=== PATIENT | male | born 1985 | race Caucasian/White ===

== ENCOUNTER 2020-06-19 10:00 | Inpatient (IN) | payer OTHER ==
[~2020-06-19] VITALS: Ht 185.4 cm; Wt 79.5 kg
[2020-06-19] MEDS ORDERED: SODIUM CHLORIDE 0.9% 1,000 ML IV ONE ×2 (11:30→13:00)
[2020-06-19] MEDS ORDERED: KETOROLAC TROMETHAMINE 30 MG/ML VIAL IVP ONE (11:30)
[2020-06-19] MEDS ORDERED: ONDANSETRON HCL 4 MG/2 ML VIAL IVP ONE (11:45)
[2020-06-19 12:06] LABS: BASOPHILS % (AUTO) 0.4 % (0.0-2.0); EOSINOPHILS % (AUTO) 0.1 % (1.0-6.0); HEMATOCRIT 24.1 % (41-53); HEMOGLOBIN 7.7 g/dL (13.5-17.5); LYMPHOCYTES # (AUTO) 1.3 K/uL (1.0-4.8); LYMPHOCYTES % (AUTO) 21.8 % (22.0-44.0); MEAN CORPUSCULAR HEMOGLOBIN 22.7 pg (26.0-34.0); MEAN CORPUSCULAR HGB CONC 32.1 G/dL (31.0-37.0); MEAN CORPUSCULAR VOLUME 71 fL (80-100); MONOCYTES # (AUTO) 0.4 K/uL (0.1-1.0); MONOCYTES % (AUTO) 6.3 % (2.0-9.0); NEUTROPHILS # (AUTO) 4.1 K/uL (1.8-7.7); NEUTROPHILS % (AUTO) 71.4 % (40.0-70.0); PLATELET COUNT (AUTO) 466 K/uL (150-450); RED CELL DISTRIBUTION WIDTH 15.8 % (11.5-14.5)
[2020-06-19 12:10] LABS: COVID AG,FIA SOURCE NASOPHARYNGEAL
[2020-06-19 12:19] LABS: ANION GAP 11 mmol/L (8-16); CALCIUM, TOTAL 7.7 mg/dL (8.8-10.5); CARBON DIOXIDE 19 mmol/L (22-29); CHLORIDE 108 mmol/L (98-107); CREATININE 2.93 mg/dL (0.60-1.30); GLOMERULAR FILTR. RATE CALC 24 mL/min (>60); GLUCOSE,RANDOM 73 mg/dL (70-110); POTASSIUM 3.7 mmol/L (3.5-5.1); SODIUM SERUM 138 mmol/L (136-145); UREA NITROGEN, BLOOD 54 mg/dL (7-18)
[2020-06-19 12:25] LABS: ALANINE AMINOTRANSFERASE 28 U/L (12-78); ALKALINE PHOSPHATASE 99 U/L (46-116); ASPARTATE AMINOTRANSFERASE 35 U/L (15-37); BILIRUBIN,TOTAL 0.1 mg/dL (0.1-1.0); LIPASE 203 U/L (73-393); TOTAL PROTEIN, SERUM 6.6 g/dL (6.4-8.2)
[2020-06-19] MEDS ORDERED: ONDANSETRON HCL 4 MG/2 ML VIAL IVP PRN ×2 (13:00→17:00)
[2020-06-19] MEDS: SODIUM CHLORIDE 0.9% 1,000 ML IV ONE ×2 (13:00→16:07)
[2020-06-19] MEDS ORDERED: ACETAMINOPHEN 325 MG TABLET PO PRN (13:00)
[2020-06-19 14:30] VITALS: BP 138/93
[2020-06-19] MEDS ORDERED: ZOLPIDEM TARTRATE 5 MG TABLET PO ONE (15:30)
[2020-06-19] MEDS ORDERED: METOCLOPRAMIDE HCL 5 MG/ML 2 ML VIAL IVP PRN (17:00)
[2020-06-19] MEDS ORDERED: MAGNESIUM HYDROXIDE SUSPENSION 30 ML UDCUP PO PRN (17:00)
[2020-06-19] MEDS ORDERED: DICYCLOMINE HCL 10 MG CAPSULE PO PRN (17:00)
[2020-06-19] MEDS ORDERED: LORazepam 2 MG/ML VIAL IVP PRN (17:00)
[2020-06-19] MEDS ORDERED: MAGNESIUM SULFATE 2 GM, MVI, ADULT NO.1 WITH VIT K 10 ML, THIAMINE 100 MG, FOLIC ACID 1... IV ONE ×5 (17:00)
[2020-06-19] MEDS ORDERED: BISACODYL 10 MG RECTAL RECTAL SUPPOSITORY PR PRN (17:00)
[2020-06-19 18:46] VITALS: BP 125/78
[2020-06-19 19:45] VITALS: BP 129/69
[2020-06-19] MEDS ORDERED: ChlorproMAZINE HCL 50 MG/2 ML AMP IM ONE (19:45)
[2020-06-19] MEDS ORDERED: ChlorproMAZINE HCL 50 MG/2 ML AMP IM PRN (19:45)
[2020-06-19] MEDS ORDERED: LORazepam 2 MG/ML VIAL IM ONE (19:45)
[2020-06-19 20:48] VITALS: BP 129/89
[2020-06-19] MEDS: DOCUSATE SODIUM 100 MG CAPSULE PO SCH (21:08)
[2020-06-19] MEDS: TEMAZEPAM 15 MG CAPSULE PO SCH (21:08)
[2020-06-20 00:15] VITALS: BP 119/68
[2020-06-20] MEDS: HEPARIN SODIUM,PORCINE 5,000 UNITS/ML VIAL SQ SCH ×4 (00:29→23:16)
[2020-06-20 00:50] VITALS: BP 119/68
[2020-06-20 05:26] VITALS: BP 138/89
[2020-06-20 06:13] LABS: BASOPHILS % (AUTO) 0.3 % (0.0-2.0); EOSINOPHILS % (AUTO) 0.1 % (1.0-6.0); HEMATOCRIT 23.2 % (41-53); HEMOGLOBIN 7.4 g/dL (13.5-17.5); LYMPHOCYTES # (AUTO) 1.9 K/uL (1.0-4.8); LYMPHOCYTES % (AUTO) 27.3 % (22.0-44.0); MEAN CORPUSCULAR HEMOGLOBIN 22.8 pg (26.0-34.0); MEAN CORPUSCULAR HGB CONC 32.1 G/dL (31.0-37.0); MEAN CORPUSCULAR VOLUME 71 fL (80-100); MONOCYTES # (AUTO) 0.4 K/uL (0.1-1.0); MONOCYTES % (AUTO) 6.3 % (2.0-9.0); NEUTROPHILS # (AUTO) 4.7 K/uL (1.8-7.7); PLATELET COUNT (AUTO) 367 K/uL (150-450); RED BLOOD CELL COUNT(AUTO) 3.27 MIL/uL (4.50-5.90); RED CELL DISTRIBUTION WIDTH 15.3 % (11.5-14.5)
[2020-06-20 06:31] LABS: CALCIUM, TOTAL 7.6 mg/dL (8.8-10.5); CREATININE 2.58 mg/dL (0.60-1.30); POTASSIUM 3.7 mmol/L (3.5-5.1)
[2020-06-20 07:45] VITALS: BP 128/81
[2020-06-20 08:00] VITALS: BP 128/81
[2020-06-20] MEDS: DOCUSATE SODIUM 100 MG CAPSULE PO SCH ×2 (09:00→20:26)
[2020-06-20] MEDS: PANTOPRAZOLE SODIUM 40 MG DR TABLET PO SCH (09:04)
[2020-06-20 10:21] LABS: C.DIFF GDH ANTIGEN, Stool Negative (Negative); C.DIFF TOXINS A&B, Stool Negative (Negative)
[2020-06-20] MEDS ORDERED: DICYCLOMINE HCL 10 MG CAPSULE PO PRN (10:30)
[2020-06-20] MEDS ORDERED: CloNIDine HCL 0.1 MG TABLET PO PRN (10:30)
[2020-06-20] MEDS ORDERED: MAG HYDROX/AL HYDROX/SIMETH ES 30 ML SUSPENSION UDCUP PO PRN (10:30)
[2020-06-20] MEDS ORDERED: HydrOXYzine PAMOATE 50 MG CAPSULE PO PRN (10:30)
[2020-06-20] MEDS: ChlorproMAZINE HCL 50 MG TABLET PO SCH ×2 (11:59→20:26)
[2020-06-20] MEDS ORDERED: LOPERAMIDE HCL 2 MG CAPSULE PO PRN (12:45)
[2020-06-20] MEDS: LOPERAMIDE HCL 2 MG CAPSULE PO PRN (15:20)
[2020-06-20] MEDS: MetroNIDAZOLE 500 MG/NACL 100 ML IV SCH ×2 (15:22→20:25)
[2020-06-20] MEDS: ACETAMINOPHEN/CODEINE 300-15 MG TABLET PO PRN (17:35)
[2020-06-20 20:05] VITALS: BP 132/74
[2020-06-20] MEDS: TEMAZEPAM 15 MG CAPSULE PO SCH (20:25)
[2020-06-20] MEDS ORDERED: SODIUM CHLORIDE 0.9% 250 ML IV ONE (20:31)
[2020-06-20] MEDS: ZOLPIDEM TARTRATE 5 MG TABLET PO PRN (23:16)
[2020-06-21 03:55] VITALS: BP 108/78
[2020-06-21] MEDS: LOPERAMIDE HCL 2 MG CAPSULE PO PRN ×2 (03:55→20:18)
[2020-06-21] MEDS: LORazepam 2 MG/ML VIAL IM PRN ×2 (03:59→20:18)
[2020-06-21] MEDS: MetroNIDAZOLE 500 MG/NACL 100 ML IV SCH ×2 (05:28→13:22)
[2020-06-21] MEDS: ChlorproMAZINE HCL 50 MG TABLET PO SCH ×2 (08:01→20:23)
[2020-06-21] MEDS: PANTOPRAZOLE SODIUM 40 MG DR TABLET PO SCH (08:01)
[2020-06-21] MEDS: HEPARIN SODIUM,PORCINE 5,000 UNITS/ML VIAL SQ SCH ×2 (08:05→16:17)
[2020-06-21] MEDS: DOCUSATE SODIUM 100 MG CAPSULE PO SCH ×2 (08:12→20:22)
[2020-06-21 09:03] LABS: BASOPHILS % (AUTO) 0.7 % (0.0-2.0); EOSINOPHILS % (AUTO) 0.2 % (1.0-6.0); HEMATOCRIT 24.3 % (41-53); HEMOGLOBIN 7.6 g/dL (13.5-17.5); LYMPHOCYTES # (AUTO) 2.1 K/uL (1.0-4.8); LYMPHOCYTES % (AUTO) 29.6 % (22.0-44.0); MEAN CORPUSCULAR HEMOGLOBIN 22.6 pg (26.0-34.0); MEAN CORPUSCULAR HGB CONC 31.2 G/dL (31.0-37.0); MEAN CORPUSCULAR VOLUME 73 fL (80-100); MONOCYTES # (AUTO) 0.4 K/uL (0.1-1.0); MONOCYTES % (AUTO) 5.9 % (2.0-9.0); NEUTROPHILS # (AUTO) 4.4 K/uL (1.8-7.7); NEUTROPHILS % (AUTO) 63.6 % (40.0-70.0); PLATELET COUNT (AUTO) 451 K/uL (150-450); RED BLOOD CELL COUNT(AUTO) 3.34 MIL/uL (4.50-5.90)
[2020-06-21 09:12] LABS: CALCIUM, TOTAL 7.8 mg/dL (8.8-10.5); CREATININE 2.44 mg/dL (0.60-1.30); POTASSIUM 3.9 mmol/L (3.5-5.1)
[2020-06-21 09:24] LABS: AMPHET/METH SCREEN,URINE NEGATIVE (NEGATIVE); BARBITURATE SCREEN, URINE NEGATIVE (NEGATIVE); BENZODIAZEPINES SCREEN,URINE NEGATIVE (NEGATIVE); CANNABINOID SCREEN,URINE NEGATIVE (NEGATIVE); COCAINE SCREEN,URINE NEGATIVE (NEGATIVE); METHADONE SCREEN, URINE NEGATIVE (NEGATIVE); OPIATE SCREEN,URINE POSITIVE (NEGATIVE)
[2020-06-21 09:26] LABS: PHENCYCLIDINE SCREEN,URINE NEGATIVE (NEGATIVE)
[2020-06-21] MEDS ORDERED: SODIUM CHLORIDE 0.9% 1,000 ML IV ONE (13:15)
[2020-06-21] MEDS: ACETAMINOPHEN/CODEINE 300-15 MG TABLET PO PRN (16:16)
[2020-06-21] MEDS: TEMAZEPAM 15 MG CAPSULE PO SCH (20:18)
[2020-06-21] MEDS: MetroNIDAZOLE 500 MG TABLET PO SCH (20:22)
[2020-06-21 20:46] VITALS: BP 133/77
[2020-06-22] MEDS: HEPARIN SODIUM,PORCINE 5,000 UNITS/ML VIAL SQ SCH ×4 (00:17→23:39)
[2020-06-22] MEDS: ZOLPIDEM TARTRATE 5 MG TABLET PO PRN (00:17)
[2020-06-22 05:00] VITALS: BP 106/71
[2020-06-22 06:20] LABS: BASOPHILS % (AUTO) 0.4 % (0.0-2.0); EOSINOPHILS % (AUTO) 0.3 % (1.0-6.0); HEMATOCRIT 22.8 % (41-53); HEMOGLOBIN 7.3 g/dL (13.5-17.5); LYMPHOCYTES # (AUTO) 2.1 K/uL (1.0-4.8); LYMPHOCYTES % (AUTO) 28.8 % (22.0-44.0); MEAN CORPUSCULAR HGB CONC 32.1 G/dL (31.0-37.0); MEAN CORPUSCULAR VOLUME 71 fL (80-100); MONOCYTES # (AUTO) 0.4 K/uL (0.1-1.0); MONOCYTES % (AUTO) 5.7 % (2.0-9.0); NEUTROPHILS # (AUTO) 4.7 K/uL (1.8-7.7); NEUTROPHILS % (AUTO) 64.8 % (40.0-70.0); PLATELET COUNT (AUTO) 360 K/uL (150-450); RED BLOOD CELL COUNT(AUTO) 3.19 MIL/uL (4.50-5.90); RED CELL DISTRIBUTION WIDTH 16.4 % (11.5-14.5)
[2020-06-22 06:33] LABS: CALCIUM, TOTAL 7.8 mg/dL (8.8-10.5); CREATININE 2.47 mg/dL (0.60-1.30); POTASSIUM 4.3 mmol/L (3.5-5.1)
[2020-06-22 07:50] VITALS: BP 103/60
[2020-06-22] MEDS: PANTOPRAZOLE SODIUM 40 MG DR TABLET PO SCH (08:32)
[2020-06-22] MEDS: ChlorproMAZINE HCL 50 MG TABLET PO SCH ×2 (08:32→22:20)
[2020-06-22] MEDS: MetroNIDAZOLE 500 MG TABLET PO SCH ×3 (08:32→22:20)
[2020-06-22] MEDS: DOCUSATE SODIUM 100 MG CAPSULE PO SCH ×2 (08:32→22:20)
[2020-06-22] MEDS: LOPERAMIDE HCL 2 MG CAPSULE PO PRN (15:55)
[2020-06-22] MEDS: LACTOBACILLUS ACIDOPHILUS/BULGARICUS GRANULES PACKET PO SCH ×2 (15:55→22:20)
[2020-06-22] MEDS: LORazepam 2 MG/ML VIAL IM PRN (15:56)
[2020-06-22 19:51] VITALS: BP 113/64
[2020-06-22] MEDS: TEMAZEPAM 15 MG CAPSULE PO SCH (22:19)
[2020-06-23] VITALS: BP 114/66
[2020-06-23 06:06] VITALS: BP 99/49
[2020-06-23 08:10] VITALS: BP 94/61
[2020-06-23] MEDS: DOCUSATE SODIUM 100 MG CAPSULE PO SCH ×2 (09:00→19:41)
[2020-06-23] MEDS: MetroNIDAZOLE 500 MG TABLET PO SCH ×3 (09:21→19:50)
[2020-06-23] MEDS: LACTOBACILLUS ACIDOPHILUS/BULGARICUS GRANULES PACKET PO SCH ×3 (09:22→20:20)
[2020-06-23] MEDS: ChlorproMAZINE HCL 50 MG TABLET PO SCH ×2 (09:22→19:50)
[2020-06-23] MEDS: PANTOPRAZOLE SODIUM 40 MG DR TABLET PO SCH (09:22)
[2020-06-23] MEDS: HEPARIN SODIUM,PORCINE 5,000 UNITS/ML VIAL SQ SCH ×3 (09:24→23:23)
[2020-06-23] MEDS: LORazepam 2 MG/ML VIAL IM PRN ×2 (11:09→19:49)
[2020-06-23 13:26] LABS: CALCIUM, TOTAL 7.7 mg/dL (8.8-10.5); CREATININE 2.18 mg/dL (0.60-1.30); POTASSIUM 3.8 mmol/L (3.5-5.1)
[2020-06-23] MEDS: LOPERAMIDE HCL 2 MG CAPSULE PO PRN ×2 (18:14→23:21)
[2020-06-23] MEDS: TEMAZEPAM 15 MG CAPSULE PO SCH (19:49)
[2020-06-23 20:00] VITALS: BP 108/75
[2020-06-23] MEDS: ZOLPIDEM TARTRATE 5 MG TABLET PO PRN (23:21)
[2020-06-24] MEDS: LORazepam 2 MG/ML VIAL IM PRN ×2 (00:11→05:28)
[2020-06-24 00:20] VITALS: BP 128/71
[2020-06-24 04:20] VITALS: BP 95/59
[2020-06-24 07:51] VITALS: BP 123/78
[2020-06-24] MEDS: HEPARIN SODIUM,PORCINE 5,000 UNITS/ML VIAL SQ SCH ×2 (08:00→16:00)
[2020-06-24] MEDS: MetroNIDAZOLE 500 MG TABLET PO SCH ×3 (08:43→19:53)
[2020-06-24] MEDS: PANTOPRAZOLE SODIUM 40 MG DR TABLET PO SCH (08:43)
[2020-06-24] MEDS: LACTOBACILLUS ACIDOPHILUS/BULGARICUS GRANULES PACKET PO SCH ×3 (08:43→21:29)
[2020-06-24] MEDS: DOCUSATE SODIUM 100 MG CAPSULE PO SCH ×2 (08:43→21:00)
[2020-06-24] MEDS: ChlorproMAZINE HCL 50 MG TABLET PO SCH ×2 (08:44→19:53)
[2020-06-24] MEDS: LOPERAMIDE HCL 2 MG CAPSULE PO PRN ×2 (11:03→17:35)
[2020-06-24] MEDS ORDERED: METR500 PO (15:02)
[2020-06-24] MEDS ORDERED: LOPE2 PO (15:02)
[2020-06-24] MEDS ORDERED: TRAZ-252 PO (15:03)
[2020-06-24] MEDS ORDERED: CHLO50TA41 PO (15:04)
[2020-06-24 19:46] VITALS: BP 124/83
[2020-06-24] MEDS: TEMAZEPAM 15 MG CAPSULE PO SCH (19:53)
[2020-06-24] MEDS: ZOLPIDEM TARTRATE 5 MG TABLET PO PRN (21:25)
[2020-06-25 07:07] LABS: CALCIUM, TOTAL 7.7 mg/dL (8.8-10.5); CREATININE 2.25 mg/dL (0.60-1.30); POTASSIUM 3.7 mmol/L (3.5-5.1)
[2020-06-25] MEDS: ChlorproMAZINE HCL 50 MG TABLET PO SCH (08:51)
[2020-06-25] MEDS: MetroNIDAZOLE 500 MG TABLET PO SCH (08:51)
[2020-06-25] MEDS: HEPARIN SODIUM,PORCINE 5,000 UNITS/ML VIAL SQ SCH ×2 (08:51)
[2020-06-25] MEDS: PANTOPRAZOLE SODIUM 40 MG DR TABLET PO SCH (08:51)
[2020-06-25] MEDS: LACTOBACILLUS ACIDOPHILUS/BULGARICUS GRANULES PACKET PO SCH (08:52)
[2020-06-25] MEDS: DOCUSATE SODIUM 100 MG CAPSULE PO SCH (08:52)
[2020-06-25 08:55] VITALS: BP 111/62
== END 2020-06-25 10:40 | DRG 896 ==
LOC: EMS 10:06 → 6S 12:59
PROVIDERS: ADMIT Internal Medicine; ATTEND Internal Medicine
DX: F11.13 Opioid abuse with withdrawal (principal); N17.0 Acute kidney failure with tubular necrosis; F33.2 Major depressive disorder, recurrent severe without psychotic features; N17.9 Acute kidney failure, unspecified; D64.9 Anemia, unspecified; F17.210 Nicotine dependence, cigarettes, uncomplicated; N18.9 Chronic kidney disease, unspecified; D47.3 Essential (hemorrhagic) thrombocythemia; Z79.899 Other long term (current) drug therapy; Z91.5 Personal history of self-harm; Z59.0 Homelessness; Z20.822 Contact with and (suspected) exposure to COVID-19
CPT/HCPCS: 76770; 80048; 80053; 82270; 83690; 85025; 87324; 87426; 87449; 99285; G0480; J1644; J1885; J2060; J2405; J3230; J3411; J3475; J3490; J7030; J7050

== ENCOUNTER 2020-08-02 00:36 | Inpatient (IN) | payer OTHER ==
[~2020-08-02] VITALS: Ht 165.1 cm; Wt 53.4 kg
[~2020-08-02 00:36] MED LIST: CHLO50TA41 PO; LOPE2 PO; METR500 PO; TRAZ-252 PO
[2020-08-02] MEDS ORDERED: 0.9% SODIUM CHLORIDE 10 ML SYRINGE IVP PRN (01:45)
[2020-08-02] MEDS ORDERED: SODIUM CHLORIDE 0.9% 1,000 ML IV ONE ×3 (01:45→09:15)
[2020-08-02] MEDS ORDERED: CefTRIAXone 1 GM/DEXTROSE 50 ML IV ONE (01:45)
[2020-08-02] MEDS ORDERED: ACETAMINOPHEN 325 MG TABLET PO PRN (01:45)
[2020-08-02] MEDS ORDERED: ONDANSETRON HCL 4 MG/2 ML VIAL IVP PRN ×2 (01:45→09:15)
[2020-08-02 02:05] LABS: COVID AG,FIA SOURCE NASOPHARYNGEAL
[2020-08-02 02:08] LABS: BASOPHILS % (AUTO) 0.7 % (0.0-2.0); EOSINOPHILS % (AUTO) 0 % (1.0-6.0); HEMATOCRIT 29.5 % (41-53); HEMOGLOBIN 9.2 g/dL (13.5-17.5); LYMPHOCYTES # (AUTO) 1.4 K/uL (1.0-4.8); LYMPHOCYTES % (AUTO) 18.5 % (22.0-44.0); MEAN CORPUSCULAR HEMOGLOBIN 22.2 pg (26.0-34.0); MEAN CORPUSCULAR HGB CONC 31.2 G/dL (31.0-37.0); MEAN CORPUSCULAR VOLUME 71 fL (80-100); MONOCYTES # (AUTO) 0.5 K/uL (0.1-1.0); MONOCYTES % (AUTO) 7.3 % (2.0-9.0); NEUTROPHILS # (AUTO) 5.4 K/uL (1.8-7.7); NEUTROPHILS % (AUTO) 73.5 % (40.0-70.0); PLATELET COUNT (AUTO) 492 K/uL (150-450); RED BLOOD CELL COUNT(AUTO) 4.14 MIL/uL (4.50-5.90); RED CELL DISTRIBUTION WIDTH 19.7 % (11.5-14.5)
[2020-08-02 02:14] LABS: INR 1.1 (0.9-1.1); PROTHROMBIN TIME 11.5 SEC (9.4-11.6)
[2020-08-02 02:17] LABS: CALCIUM, TOTAL 8.5 mg/dL (8.8-10.5); CREATININE 3.13 mg/dL (0.60-1.30); POTASSIUM 3.3 mmol/L (3.5-5.1)
[2020-08-02 02:22] LABS: ALBUMIN 1.2 g/dL (3.4-5.0); BILIRUBIN,TOTAL 0.1 mg/dL (0.1-1.0); MAGNESIUM 1.7 mg/dL (1.80-2.40); TOTAL PROTEIN, SERUM 8.2 g/dL (6.4-8.2)
[2020-08-02 02:25] LABS: INFLUENZA TYPE A NEGATIVE FOR TYPE A (NEGATIVE); INFLUENZA TYPE B NEGATIVE FOR TYPE B (NEGATIVE)
[2020-08-02] MEDS ORDERED: SULFAMETHOX/TRIMETH 10 ML in DEXTROSE 5%-WATER 250 ML IV SCH (04:00)
[2020-08-02 08:07] VITALS: BP 100/64
[2020-08-02] MEDS ORDERED: MAGNESIUM HYDROXIDE SUSPENSION 30 ML UDCUP PO PRN (09:15)
[2020-08-02] MEDS ORDERED: BISACODYL 10 MG RECTAL RECTAL SUPPOSITORY PR PRN (09:15)
[2020-08-02] MEDS: HEPARIN SODIUM,PORCINE 5,000 UNITS/ML VIAL SQ SCH (16:00)
[2020-08-02] MEDS ORDERED: 0.9% SODIUM CHLORIDE 5 ML NEB SOLUTION NEB ONE ×2 (20:16→20:17)
[2020-08-02] MEDS ORDERED: SODIUM CHLORIDE 3% 15 ML NEB SOLUTION NEB ONE (20:21)
[2020-08-02 20:23] VITALS: BP 108/65
[2020-08-02] MEDS: DOXYCYCLINE HYCLATE 100 MG TABLET PO SCH (21:00)
[2020-08-02] MEDS: DOCUSATE SODIUM 100 MG CAPSULE PO SCH (21:00)
[2020-08-03 00:34] LABS: APPEARANCE,URINE CLEAR (CLEAR); BILIRUBIN,URINE NEGATIVE (NEGATIVE); GLUCOSE, URINE (UA) NEGATIVE (NEGATIVE); KETONES,URINE NEGATIVE (NEGATIVE); LEUKOCYTE ESTERASE ,URINE NEGATIVE (NEGATIVE); NITRATE,URINE NEGATIVE (NEGATIVE); OCCULT BLOOD,URINE TRACE (NEGATIVE); PROTEIN,URINE SEE CONFIRM (NEGATIVE); UROBILINOGEN,URINE 0.2 mg/dL (<=1.0)
[2020-08-03 00:36] LABS: BACTERIA,URINE None Seen /HPF (None Seen); RBC,URINE 0-2 /HPF (0-2); SQUAMOUS EPITHELIAL CELL,UR Rare /LPF (None Seen); SULFOSALICYLIC ACID,URINE 2+ (Negative); WBC,URINE 0-2 /HPF (0-5)
[2020-08-03 03:44] VITALS: BP 108/82
[2020-08-03] MEDS: ACETAMINOPHEN 325 MG TABLET PO PRN (04:03)
[2020-08-03] MEDS ORDERED: 0.9% SODIUM CHLORIDE 5 ML NEB SOLUTION NEB ONE (05:34)
[2020-08-03 06:25] LABS: BASOPHILS % (AUTO) 0.4 % (0.0-2.0); EOSINOPHILS % (AUTO) 0.2 % (1.0-6.0); HEMATOCRIT 22.4 % (41-53); LYMPHOCYTES # (AUTO) 1.4 K/uL (1.0-4.8); LYMPHOCYTES % (AUTO) 25.8 % (22.0-44.0); MEAN CORPUSCULAR HEMOGLOBIN 22.3 pg (26.0-34.0); MEAN CORPUSCULAR HGB CONC 31.3 G/dL (31.0-37.0); MEAN CORPUSCULAR VOLUME 71 fL (80-100); MONOCYTES # (AUTO) 0.4 K/uL (0.1-1.0); MONOCYTES % (AUTO) 7.7 % (2.0-9.0); NEUTROPHILS # (AUTO) 3.5 K/uL (1.8-7.7); NEUTROPHILS % (AUTO) 65.9 % (40.0-70.0); PLATELET COUNT (AUTO) 397 K/uL (150-450); RED BLOOD CELL COUNT(AUTO) 3.15 MIL/uL (4.50-5.90); RED CELL DISTRIBUTION WIDTH 19.4 % (11.5-14.5)
[2020-08-03 07:04] LABS: CREATININE 2.72 mg/dL (0.60-1.30); POTASSIUM 3.2 mmol/L (3.5-5.1)
[2020-08-03] MEDS: HEPARIN SODIUM,PORCINE 5,000 UNITS/ML VIAL SQ SCH ×6 (08:00→22:32)
[2020-08-03 08:03] VITALS: BP 101/69
[2020-08-03] MEDS: PANTOPRAZOLE SODIUM 40 MG DR TABLET PO SCH ×2 (08:57→09:00)
[2020-08-03] MEDS: DOXYCYCLINE HYCLATE 100 MG TABLET PO SCH ×3 (08:57→21:00)
[2020-08-03] MEDS: DOCUSATE SODIUM 100 MG CAPSULE PO SCH ×3 (08:58→21:00)
[2020-08-03 11:55] LABS: PHOSPHORUS 4.7 mg/dL (2.5-4.9)
[2020-08-03] MEDS ORDERED: SODIUM CHLORIDE 0.9% 1,000 ML IV ONE (14:00)
[2020-08-03] MEDS: PIPERACILLIN SODIUM/TAZOBACTAM 2.25 GM in DEXTROSE 5%-WATER 50 ML IV SCH ×2 (15:36→22:14)
[2020-08-03 19:55] VITALS: BP 122/66
[2020-08-04] MEDS ORDERED: SODIUM CHLORIDE 0.9% 250 ML IV ONE (03:17)
[2020-08-04] MEDS: PIPERACILLIN SODIUM/TAZOBACTAM 2.25 GM in DEXTROSE 5%-WATER 50 ML IV SCH ×4 (03:24→21:11)
[2020-08-04 05:44] VITALS: BP 112/70
[2020-08-04] MEDS: HEPARIN SODIUM,PORCINE 5,000 UNITS/ML VIAL SQ SCH ×4 (08:00→23:40)
[2020-08-04 08:15] VITALS: BP 106/71
[2020-08-04] MEDS: DOCUSATE SODIUM 100 MG CAPSULE PO SCH ×4 (09:00→21:11)
[2020-08-04] MEDS: PANTOPRAZOLE SODIUM 40 MG DR TABLET PO SCH ×2 (09:00→09:51)
[2020-08-04] MEDS: THIAMINE 100 MG TABLET PO SCH ×2 (09:00→09:47)
[2020-08-04] MEDS: DOXYCYCLINE HYCLATE 100 MG TABLET PO SCH ×4 (09:00→21:11)
[2020-08-04 09:26] LABS: HEMATOCRIT 22.1 % (41-53); LYMPHOCYTES # (AUTO) 1.7 K/uL (1.0-4.8); MONOCYTES # (AUTO) 0.6 K/uL (0.1-1.0)
[2020-08-04 09:31] LABS: BASOPHILS % (AUTO) 0.7 % (0.0-2.0); EOSINOPHILS % (AUTO) 0.2 % (1.0-6.0); LYMPHOCYTES % (AUTO) 21.7 % (22.0-44.0); MEAN CORPUSCULAR HEMOGLOBIN 22.5 pg (26.0-34.0); MEAN CORPUSCULAR HGB CONC 31.7 G/dL (31.0-37.0); MEAN CORPUSCULAR VOLUME 71 fL (80-100); NEUTROPHILS # (AUTO) 5.4 K/uL (1.8-7.7); NEUTROPHILS % (AUTO) 69.4 % (40.0-70.0); PLATELET COUNT (AUTO) 402 K/uL (150-450); RED BLOOD CELL COUNT(AUTO) 3.11 MIL/uL (4.50-5.90); RED CELL DISTRIBUTION WIDTH 19.2 % (11.5-14.5)
[2020-08-04 09:38] LABS: CALCIUM, TOTAL 7.7 mg/dL (8.8-10.5); CREATININE 2.84 mg/dL (0.60-1.30); POTASSIUM 3.3 mmol/L (3.5-5.1)
[2020-08-04] MEDS ORDERED: ETHAMBUTOL HCL 400 MG TABLET PO SCH (15:45)
[2020-08-04] MEDS ORDERED: PYRAZINAMIDE 500 MG TABLET PO SCH (15:45)
[2020-08-04] MEDS: PYRIDOXINE HCL 50 MG TABLET PO SCH (15:45)
[2020-08-04] MEDS: ISONIAZID 300 MG TABLET PO SCH (15:45)
[2020-08-04] MEDS: RIFAMPIN 300 MG CAPSULE PO SCH (15:45)
[2020-08-04 20:30] VITALS: BP 99/67
[2020-08-04] MEDS: ACETAMINOPHEN 325 MG TABLET PO PRN (21:11)
[2020-08-04 23:25] VITALS: BP 103/66
[2020-08-04] MEDS ORDERED: SODIUM CHLORIDE 0.9% 500 ML IV ONE (23:33)
[2020-08-05 03:10] VITALS: BP 119/81
[2020-08-05] MEDS: PIPERACILLIN SODIUM/TAZOBACTAM 2.25 GM in DEXTROSE 5%-WATER 50 ML IV SCH ×2 (04:00→08:59)
[2020-08-05 05:07] LABS: CMV IGM ANTIBODY <30.0 AU/mL (0.0-29.9)
[2020-08-05 08:00] VITALS: BP 118/85
[2020-08-05 08:06] LABS: LEGIONELLA PNEUMO AG URINE Negative (Negative); ORGANISM ID Not indicated.; S PNEUMO SOURCE Urine; STREP PNEUMONIAE AG URINE Negative (Negative); STREP.PNEUMO BODY FLUID CULT. Not indicated.
[2020-08-05] MEDS: DOXYCYCLINE HYCLATE 100 MG TABLET PO SCH (08:59)
[2020-08-05] MEDS: ISONIAZID 300 MG TABLET PO SCH (08:59)
[2020-08-05] MEDS: PANTOPRAZOLE SODIUM 40 MG DR TABLET PO SCH (08:59)
[2020-08-05] MEDS: RIFAMPIN 300 MG CAPSULE PO SCH (08:59)
[2020-08-05] MEDS: THIAMINE 100 MG TABLET PO SCH (08:59)
[2020-08-05] MEDS: HEPARIN SODIUM,PORCINE 5,000 UNITS/ML VIAL SQ SCH ×3 (08:59→23:45)
[2020-08-05] MEDS: PYRIDOXINE HCL 50 MG TABLET PO SCH (08:59)
[2020-08-05] MEDS: DOCUSATE SODIUM 100 MG CAPSULE PO SCH ×2 (09:00→20:34)
[2020-08-05 12:03] LABS: BASOPHILS % (AUTO) 0.9 % (0.0-2.0); EOSINOPHILS % (AUTO) 0 % (1.0-6.0); HEMATOCRIT 24.4 % (41-53); HEMOGLOBIN 7.6 g/dL (13.5-17.5); LYMPHOCYTES # (AUTO) 1.5 K/uL (1.0-4.8); LYMPHOCYTES % (AUTO) 20.4 % (22.0-44.0); MEAN CORPUSCULAR HEMOGLOBIN 21.8 pg (26.0-34.0); MEAN CORPUSCULAR HGB CONC 31.1 G/dL (31.0-37.0); MEAN CORPUSCULAR VOLUME 70 fL (80-100); MONOCYTES # (AUTO) 0.4 K/uL (0.1-1.0); MONOCYTES % (AUTO) 5.5 % (2.0-9.0); NEUTROPHILS # (AUTO) 5.2 K/uL (1.8-7.7); NEUTROPHILS % (AUTO) 73.2 % (40.0-70.0); PLATELET COUNT (AUTO) 350 K/uL (150-450); RED BLOOD CELL COUNT(AUTO) 3.48 MIL/uL (4.50-5.90); RED CELL DISTRIBUTION WIDTH 19.2 % (11.5-14.5)
[2020-08-05 12:11] LABS: CALCIUM, TOTAL 7.8 mg/dL (8.8-10.5); CREATININE 2.9 mg/dL (0.60-1.30); POTASSIUM 3.7 mmol/L (3.5-5.1)
[2020-08-05] MEDS: SODIUM CHLORIDE 0.9% 1,000 ML IV SCH (13:20)
[2020-08-05] MEDS: PYRAZINAMIDE 500 MG TABLET PO SCH (14:53)
[2020-08-05] MEDS: ETHAMBUTOL HCL 400 MG TABLET PO SCH (14:53)
[2020-08-05 15:06] LABS: U HISTOPLASMA GALACTOMANNAN AG <0.5 (<0.5 ng/mL)
[2020-08-05 15:56] LABS: APPEARANCE,URINE CLEAR (CLEAR); BILIRUBIN,URINE NEGATIVE (NEGATIVE); GLUCOSE, URINE (UA) NEGATIVE (NEGATIVE); KETONES,URINE NEGATIVE (NEGATIVE); LEUKOCYTE ESTERASE ,URINE NEGATIVE (NEGATIVE); NITRATE,URINE NEGATIVE (NEGATIVE); OCCULT BLOOD,URINE NEGATIVE (NEGATIVE); PROTEIN,URINE SEE CONFIRM (NEGATIVE); UROBILINOGEN,URINE 0.2 mg/dL (<=1.0)
[2020-08-05 16:00] LABS: CREATININE,URINE RANDOM 23.2 mg/dL (30.0-125.0); PROTEIN,URINE RANDOM 190 mg/dL (0-11.9); SODIUM,URINE RANDOM 31 mmol/l (20-110); UREA NITROGEN,URINE RANDOM 163 mg/dL (350-1000)
[2020-08-05 16:08] LABS: SULFOSALICYLIC ACID,URINE 3+ (Negative)
[2020-08-05 16:09] LABS: RBC,URINE 0-2 /HPF (0-2); WBC,URINE 0-2 /HPF (0-5)
[2020-08-05 16:10] LABS: BACTERIA,URINE Rare /HPF (None Seen); SQUAMOUS EPITHELIAL CELL,UR Rare /LPF (None Seen)
[2020-08-05] MEDS: EPOETIN ALFA 10,000 UNITS/ML VIAL SQ SCH (18:20)
[2020-08-05 19:50] VITALS: BP 98/57
[2020-08-05] MEDS: SODIUM BICARBONATE 650 MG TABLET PO SCH (20:34)
[2020-08-05] MEDS: ZOLPIDEM TARTRATE 5 MG TABLET PO PRN (23:44)
[2020-08-06] MEDS: SODIUM CHLORIDE 0.9% 1,000 ML IV SCH ×2 (01:58→14:34)
[2020-08-06 03:55] VITALS: BP 106/74
[2020-08-06 06:14] LABS: % IRON SATURATION 11.1 % (30-44)
[2020-08-06 06:30] LABS: CALCIUM, TOTAL 8.1 mg/dL (8.8-10.5); CREATININE 2.98 mg/dL (0.60-1.30); FREE T4 (FREE THYROXINE) 1.09 ng/dL (0.76-1.46); PHOSPHORUS 4.1 mg/dL (2.5-4.9); POTASSIUM 3.4 mmol/L (3.5-5.1); THYROID STIMULATING HORMONE 4.41 uIU/mL (0.36-3.74)
[2020-08-06 08:00] VITALS: BP 118/77
[2020-08-06] MEDS: HEPARIN SODIUM,PORCINE 5,000 UNITS/ML VIAL SQ SCH ×3 (08:38→23:20)
[2020-08-06] MEDS: PANTOPRAZOLE SODIUM 40 MG DR TABLET PO SCH (08:38)
[2020-08-06] MEDS: SODIUM BICARBONATE 650 MG TABLET PO SCH ×2 (08:38→23:15)
[2020-08-06] MEDS: PYRIDOXINE HCL 50 MG TABLET PO SCH (08:39)
[2020-08-06] MEDS: THIAMINE 100 MG TABLET PO SCH (08:39)
[2020-08-06] MEDS: RIFAMPIN 300 MG CAPSULE PO SCH (08:39)
[2020-08-06] MEDS: ISONIAZID 300 MG TABLET PO SCH (08:39)
[2020-08-06] MEDS: DOCUSATE SODIUM 100 MG CAPSULE PO SCH ×2 (08:44→21:00)
[2020-08-06] MEDS: ACETAMINOPHEN 325 MG TABLET PO PRN ×2 (08:52→12:55)
[2020-08-06] MEDS: CHOLECALCIFEROL (VIT D3) 5,000 [125 MCG] UNITS CAPSULE PO SCH (09:00)
[2020-08-06] MEDS: POTASSIUM CHL 10 MEQ/WATER 50 ML IV SCH ×3 (09:05→11:41)
[2020-08-06 10:35] LABS: RPR QUANT. (TITER) 1:32 (NonRea<1:1)
[2020-08-06 11:07] LABS: HIV INTERPRETATION HIV-1 Positive; HIV-1 ANTIBODY(MULTISPOT) Positive (Negative); HIV-2 ANTIBODY(MULTISPOT) Indeterminate (Negative)
[2020-08-06 14:07] LABS: ALPHA-1 (IFE & PEP) 0.3 g/dL (0.0-0.4); BETA (IFE & ELP) 0.8 g/dL (0.7-1.3); GAMMA GLOBULINS (IFE & ELP) 2.6 g/dL (0.4-1.8); IGM (IMMUNOFIXATION) 380 mg/dL (20-172)
[2020-08-06 16:06] LABS: ALBUMIN URINE (ELP) 40.3 %; ALPHA-1 URINE 9.4 %; ALPHA-2 URINE 6.5 %
[2020-08-06 20:05] VITALS: BP 113/80
[2020-08-07 04:29] VITALS: BP 115/88
[2020-08-07] MEDS: SODIUM CHLORIDE 0.9% 1,000 ML IV SCH ×2 (06:09→18:05)
[2020-08-07 06:50] LABS: BASOPHILS % (AUTO) 0.9 % (0.0-2.0); EOSINOPHILS % (AUTO) 0.4 % (1.0-6.0); HEMATOCRIT 23.9 % (41-53); HEMOGLOBIN 7.4 g/dL (13.5-17.5); LYMPHOCYTES # (AUTO) 1.2 K/uL (1.0-4.8); LYMPHOCYTES % (AUTO) 19.3 % (22.0-44.0); MEAN CORPUSCULAR HEMOGLOBIN 21.8 pg (26.0-34.0); MEAN CORPUSCULAR HGB CONC 30.9 G/dL (31.0-37.0); MEAN CORPUSCULAR VOLUME 71 fL (80-100); MONOCYTES # (AUTO) 0.3 K/uL (0.1-1.0); MONOCYTES % (AUTO) 5.3 % (2.0-9.0); NEUTROPHILS # (AUTO) 4.6 K/uL (1.8-7.7); NEUTROPHILS % (AUTO) 74.1 % (40.0-70.0); PLATELET COUNT (AUTO) 404 K/uL (150-450); RED BLOOD CELL COUNT(AUTO) 3.38 MIL/uL (4.50-5.90); RED CELL DISTRIBUTION WIDTH 19.4 % (11.5-14.5)
[2020-08-07 07:22] LABS: ALBUMIN 0.7 g/dL (3.4-5.0); BILIRUBIN,TOTAL 0.1 mg/dL (0.1-1.0); CALCIUM, TOTAL 7.8 mg/dL (8.8-10.5); CREATININE 2.5 mg/dL (0.60-1.30); POTASSIUM 3.6 mmol/L (3.5-5.1); TOTAL PROTEIN, SERUM 6.5 g/dL (6.4-8.2)
[2020-08-07 08:50] VITALS: BP 123/94
[2020-08-07] MEDS: DOCUSATE SODIUM 100 MG CAPSULE PO SCH ×2 (09:00→21:00)
[2020-08-07] MEDS: ETHAMBUTOL HCL 400 MG TABLET PO SCH (09:18)
[2020-08-07] MEDS: THIAMINE 100 MG TABLET PO SCH (09:18)
[2020-08-07] MEDS: RIFAMPIN 300 MG CAPSULE PO SCH (09:18)
[2020-08-07] MEDS: CHOLECALCIFEROL (VIT D3) 5,000 [125 MCG] UNITS CAPSULE PO SCH (09:18)
[2020-08-07] MEDS: PYRAZINAMIDE 500 MG TABLET PO SCH (09:18)
[2020-08-07] MEDS: SODIUM BICARBONATE 650 MG TABLET PO SCH ×2 (09:18→22:07)
[2020-08-07] MEDS: ISONIAZID 300 MG TABLET PO SCH (09:19)
[2020-08-07] MEDS: PYRIDOXINE HCL 50 MG TABLET PO SCH (09:19)
[2020-08-07] MEDS: PANTOPRAZOLE SODIUM 40 MG DR TABLET PO SCH (09:19)
[2020-08-07] MEDS: HEPARIN SODIUM,PORCINE 5,000 UNITS/ML VIAL SQ SCH ×2 (09:19→16:41)
[2020-08-07] MEDS ORDERED: CALCITRIOL 1 MCG/ML AMP IVP SCH (15:00)
[2020-08-07] MEDS ORDERED: SOD FERRIC GLUC COMPLX/SUCROSE 125 MG in SODIUM CHLORIDE 0.9% 100 ML IV SCH (15:00)
[2020-08-07] MEDS: POTASSIUM CITRATE 5 MEQ ER TABLET PO SCH ×2 (16:41→22:07)
[2020-08-07 20:21] VITALS: BP 123/85
[2020-08-08 04:23] VITALS: BP 120/86
[2020-08-08 06:16] LABS: BASOPHILS % (AUTO) 1.1 % (0.0-2.0); EOSINOPHILS % (AUTO) 0.7 % (1.0-6.0); HEMATOCRIT 24.3 % (41-53); HEMOGLOBIN 7.6 g/dL (13.5-17.5); LYMPHOCYTES # (AUTO) 1.6 K/uL (1.0-4.8); LYMPHOCYTES % (AUTO) 21.9 % (22.0-44.0); MEAN CORPUSCULAR HEMOGLOBIN 22.3 pg (26.0-34.0); MEAN CORPUSCULAR HGB CONC 31.3 G/dL (31.0-37.0); MEAN CORPUSCULAR VOLUME 71 fL (80-100); MONOCYTES # (AUTO) 0.8 K/uL (0.1-1.0); MONOCYTES % (AUTO) 10.6 % (2.0-9.0); NEUTROPHILS # (AUTO) 4.8 K/uL (1.8-7.7); NEUTROPHILS % (AUTO) 65.7 % (40.0-70.0); PLATELET COUNT (AUTO) 396 K/uL (150-450); RED BLOOD CELL COUNT(AUTO) 3.42 MIL/uL (4.50-5.90); RED CELL DISTRIBUTION WIDTH 19.5 % (11.5-14.5)
[2020-08-08 06:35] LABS: CALCIUM, TOTAL 8.3 mg/dL (8.8-10.5); CREATININE 2.65 mg/dL (0.60-1.30); PHOSPHORUS 2.7 mg/dL (2.5-4.9); POTASSIUM 3.8 mmol/L (3.5-5.1)
[2020-08-08 07:55] VITALS: BP 116/77
[2020-08-08] MEDS ORDERED: FERROUS SULFATE 325 MG EC TABLET PO SCH (08:00)
[2020-08-08] MEDS: HEPARIN SODIUM,PORCINE 5,000 UNITS/ML VIAL SQ SCH ×4 (08:02→23:31)
[2020-08-08] MEDS: ISONIAZID 300 MG TABLET PO SCH (08:03)
[2020-08-08] MEDS: RIFAMPIN 300 MG CAPSULE PO SCH (08:03)
[2020-08-08] MEDS: CHOLECALCIFEROL (VIT D3) 5,000 [125 MCG] UNITS CAPSULE PO SCH (08:03)
[2020-08-08] MEDS: THIAMINE 100 MG TABLET PO SCH (08:03)
[2020-08-08] MEDS: CALCITRIOL 0.25 MCG CAPSULE PO SCH (08:03)
[2020-08-08] MEDS: POTASSIUM CITRATE 5 MEQ ER TABLET PO SCH ×3 (08:03→19:43)
[2020-08-08] MEDS: SODIUM BICARBONATE 650 MG TABLET PO SCH ×2 (08:03→19:43)
[2020-08-08] MEDS: DOCUSATE SODIUM 100 MG CAPSULE PO SCH ×3 (08:03→21:00)
[2020-08-08] MEDS: PYRIDOXINE HCL 50 MG TABLET PO SCH (08:03)
[2020-08-08] MEDS: PANTOPRAZOLE SODIUM 40 MG DR TABLET PO SCH (08:04)
[2020-08-08] MEDS ORDERED: SODIUM CHLORIDE 0.9% 250 ML IV ONE (11:28)
[2020-08-08] MEDS: SOD FERRIC GLUC COMPLX/SUCROSE 125 MG in SODIUM CHLORIDE 0.9% 100 ML IV SCH (11:30)
[2020-08-08] MEDS: SODIUM BICARBONATE 75 MEQ in SODIUM CHLORIDE 0.45% 1,000 ML IV SCH (11:30)
[2020-08-08 15:20] VITALS: BP 102/64
[2020-08-08 20:13] VITALS: BP 118/88
[2020-08-09] MEDS: SODIUM BICARBONATE 75 MEQ in SODIUM CHLORIDE 0.45% 1,000 ML IV SCH ×2 (00:35→09:26)
[2020-08-09 04:31] VITALS: BP 123/86
[2020-08-09 07:05] LABS: BASOPHILS % (AUTO) 1.1 % (0.0-2.0); EOSINOPHILS % (AUTO) 0.7 % (1.0-6.0); HEMATOCRIT 23.8 % (41-53); HEMOGLOBIN 7.4 g/dL (13.5-17.5); LYMPHOCYTES # (AUTO) 1.3 K/uL (1.0-4.8); LYMPHOCYTES % (AUTO) 18.6 % (22.0-44.0); MEAN CORPUSCULAR HEMOGLOBIN 22.1 pg (26.0-34.0); MEAN CORPUSCULAR HGB CONC 31.1 G/dL (31.0-37.0); MEAN CORPUSCULAR VOLUME 71 fL (80-100); MONOCYTES # (AUTO) 0.8 K/uL (0.1-1.0); NEUTROPHILS # (AUTO) 4.7 K/uL (1.8-7.7); NEUTROPHILS % (AUTO) 67.6 % (40.0-70.0); PLATELET COUNT (AUTO) 385 K/uL (150-450); RED BLOOD CELL COUNT(AUTO) 3.35 MIL/uL (4.50-5.90); RED CELL DISTRIBUTION WIDTH 19.6 % (11.5-14.5)
[2020-08-09 07:29] LABS: ALBUMIN 0.8 g/dL (3.4-5.0); BILIRUBIN,TOTAL 0.2 mg/dL (0.1-1.0); CALCIUM, TOTAL 8.1 mg/dL (8.8-10.5); CREATININE 2.52 mg/dL (0.60-1.30); POTASSIUM 3.6 mmol/L (3.5-5.1); TOTAL PROTEIN, SERUM 6.5 g/dL (6.4-8.2)
[2020-08-09 07:31] VITALS: BP 113/59
[2020-08-09] MEDS: HEPARIN SODIUM,PORCINE 5,000 UNITS/ML VIAL SQ SCH ×4 (08:00→23:48)
[2020-08-09] MEDS: DOCUSATE SODIUM 100 MG CAPSULE PO SCH ×4 (09:00→20:10)
[2020-08-09] MEDS: ETHAMBUTOL HCL 400 MG TABLET PO SCH (09:06)
[2020-08-09] MEDS: PYRAZINAMIDE 500 MG TABLET PO SCH (09:06)
[2020-08-09] MEDS: RIFAMPIN 300 MG CAPSULE PO SCH (09:07)
[2020-08-09] MEDS: PYRIDOXINE HCL 50 MG TABLET PO SCH (09:07)
[2020-08-09] MEDS: THIAMINE 100 MG TABLET PO SCH (09:08)
[2020-08-09] MEDS: CALCITRIOL 0.25 MCG CAPSULE PO SCH (09:08)
[2020-08-09] MEDS: SODIUM BICARBONATE 650 MG TABLET PO SCH ×2 (09:08→20:03)
[2020-08-09] MEDS: ISONIAZID 300 MG TABLET PO SCH (09:08)
[2020-08-09] MEDS: CHOLECALCIFEROL (VIT D3) 5,000 [125 MCG] UNITS CAPSULE PO SCH (09:08)
[2020-08-09] MEDS: POTASSIUM CITRATE 5 MEQ ER TABLET PO SCH ×3 (09:09→20:03)
[2020-08-09] MEDS: PANTOPRAZOLE SODIUM 40 MG DR TABLET PO SCH (09:09)
[2020-08-09] MEDS: SOD FERRIC GLUC COMPLX/SUCROSE 125 MG in SODIUM CHLORIDE 0.9% 100 ML IV SCH (11:26)
[2020-08-09 19:55] VITALS: BP 107/67
[2020-08-10] MEDS: SODIUM BICARBONATE 75 MEQ in SODIUM CHLORIDE 0.45% 1,000 ML IV SCH ×2 (01:42→19:35)
[2020-08-10 04:25] VITALS: BP 112/70
[2020-08-10 06:49] LABS: CREATININE 2.38 mg/dL (0.60-1.30); MAGNESIUM 1.8 mg/dL (1.80-2.40); PHOSPHORUS 2.9 mg/dL (2.5-4.9); POTASSIUM 3.8 mmol/L (3.5-5.1)
[2020-08-10 06:50] LABS: ALBUMIN 0.7 g/dL (3.4-5.0); BILIRUBIN,TOTAL 0.1 mg/dL (0.1-1.0); CALCIUM, TOTAL 8.1 mg/dL (8.8-10.5); CREATININE 2.43 mg/dL (0.60-1.30); POTASSIUM 3.8 mmol/L (3.5-5.1); TOTAL PROTEIN, SERUM 6.1 g/dL (6.4-8.2)
[2020-08-10 07:19] LABS: BASOPHILS % (AUTO) 1.2 % (0.0-2.0); EOSINOPHILS % (AUTO) 0.9 % (1.0-6.0); HEMATOCRIT 21.2 % (41-53); LYMPHOCYTES # (AUTO) 1.5 K/uL (1.0-4.8); MEAN CORPUSCULAR HEMOGLOBIN 22.4 pg (26.0-34.0); MEAN CORPUSCULAR HGB CONC 31.5 G/dL (31.0-37.0); MEAN CORPUSCULAR VOLUME 71 fL (80-100); MONOCYTES # (AUTO) 0.8 K/uL (0.1-1.0); MONOCYTES % (AUTO) 12.9 % (2.0-9.0); NEUTROPHILS # (AUTO) 3.6 K/uL (1.8-7.7); PLATELET COUNT (AUTO) 367 K/uL (150-450); RED BLOOD CELL COUNT(AUTO) 2.97 MIL/uL (4.50-5.90); RED CELL DISTRIBUTION WIDTH 19.7 % (11.5-14.5)
[2020-08-10 07:38] VITALS: BP 120/71
[2020-08-10 07:46] LABS: HEMOGLOBIN 6.7 g/dL (13.5-17.5)
[2020-08-10] MEDS: HEPARIN SODIUM,PORCINE 5,000 UNITS/ML VIAL SQ SCH ×3 (08:00→23:42)
[2020-08-10] MEDS: RIFAMPIN 300 MG CAPSULE PO SCH (08:48)
[2020-08-10] MEDS: CALCITRIOL 0.25 MCG CAPSULE PO SCH (08:48)
[2020-08-10] MEDS: PANTOPRAZOLE SODIUM 40 MG DR TABLET PO SCH (08:48)
[2020-08-10] MEDS: CHOLECALCIFEROL (VIT D3) 5,000 [125 MCG] UNITS CAPSULE PO SCH (08:48)
[2020-08-10] MEDS: SODIUM BICARBONATE 650 MG TABLET PO SCH ×2 (08:48→19:51)
[2020-08-10] MEDS: POTASSIUM CITRATE 5 MEQ ER TABLET PO SCH ×3 (08:48→19:51)
[2020-08-10] MEDS: THIAMINE 100 MG TABLET PO SCH (08:48)
[2020-08-10] MEDS: ISONIAZID 300 MG TABLET PO SCH (08:48)
[2020-08-10] MEDS: DOCUSATE SODIUM 100 MG CAPSULE PO SCH ×2 (08:54→19:51)
[2020-08-10] MEDS: PYRIDOXINE HCL 50 MG TABLET PO SCH (08:57)
[2020-08-10 08:58] LABS: HEMATOCRIT 23.4 % (41-53); HEMOGLOBIN 7.3 g/dL (13.5-17.5)
[2020-08-10] MEDS: SOD FERRIC GLUC COMPLX/SUCROSE 125 MG in SODIUM CHLORIDE 0.9% 100 ML IV SCH (10:34)
[2020-08-10 20:02] VITALS: BP 115/95
[2020-08-11 04:45] VITALS: BP 114/76
[2020-08-11 07:53] VITALS: BP 114/81
[2020-08-11] MEDS: HEPARIN SODIUM,PORCINE 5,000 UNITS/ML VIAL SQ SCH ×5 (08:00→23:34)
[2020-08-11 08:22] LABS: BASOPHILS % (AUTO) 0.8 % (0.0-2.0); EOSINOPHILS % (AUTO) 0.7 % (1.0-6.0); HEMATOCRIT 27.5 % (41-53); HEMOGLOBIN 8.5 g/dL (13.5-17.5); LYMPHOCYTES # (AUTO) 1.5 K/uL (1.0-4.8); LYMPHOCYTES % (AUTO) 22.2 % (22.0-44.0); MEAN CORPUSCULAR HEMOGLOBIN 22.5 pg (26.0-34.0); MEAN CORPUSCULAR VOLUME 73 fL (80-100); MONOCYTES # (AUTO) 0.8 K/uL (0.1-1.0); MONOCYTES % (AUTO) 11.2 % (2.0-9.0); NEUTROPHILS # (AUTO) 4.4 K/uL (1.8-7.7); NEUTROPHILS % (AUTO) 65.1 % (40.0-70.0); PLATELET COUNT (AUTO) 422 K/uL (150-450); RED BLOOD CELL COUNT(AUTO) 3.79 MIL/uL (4.50-5.90); RED CELL DISTRIBUTION WIDTH 20.1 % (11.5-14.5)
[2020-08-11] MEDS: CHOLECALCIFEROL (VIT D3) 5,000 [125 MCG] UNITS CAPSULE PO SCH ×2 (08:27→09:00)
[2020-08-11] MEDS: POTASSIUM CITRATE 5 MEQ ER TABLET PO SCH (08:27)
[2020-08-11] MEDS: PYRIDOXINE HCL 50 MG TABLET PO SCH ×2 (08:27→09:00)
[2020-08-11] MEDS: DOCUSATE SODIUM 100 MG CAPSULE PO SCH ×3 (08:27→20:12)
[2020-08-11] MEDS: RIFAMPIN 300 MG CAPSULE PO SCH ×2 (08:27→09:00)
[2020-08-11] MEDS: SODIUM BICARBONATE 650 MG TABLET PO SCH ×3 (08:27→20:12)
[2020-08-11] MEDS: PANTOPRAZOLE SODIUM 40 MG DR TABLET PO SCH ×2 (08:28→09:00)
[2020-08-11] MEDS: CALCITRIOL 0.25 MCG CAPSULE PO SCH ×2 (08:28→09:00)
[2020-08-11] MEDS: ISONIAZID 300 MG TABLET PO SCH ×2 (08:28→09:00)
[2020-08-11 08:37] LABS: ALBUMIN 0.9 g/dL (3.4-5.0); BILIRUBIN,TOTAL 0.1 mg/dL (0.1-1.0); CALCIUM, TOTAL 8.4 mg/dL (8.8-10.5); CREATININE 2.62 mg/dL (0.60-1.30); POTASSIUM 3.8 mmol/L (3.5-5.1); TOTAL PROTEIN, SERUM 7.4 g/dL (6.4-8.2)
[2020-08-11] MEDS: SODIUM BICARBONATE 75 MEQ in SODIUM CHLORIDE 0.45% 1,000 ML IV SCH ×2 (09:55→21:20)
[2020-08-11] MEDS: SOD FERRIC GLUC COMPLX/SUCROSE 125 MG in SODIUM CHLORIDE 0.9% 100 ML IV SCH (10:15)
[2020-08-11 20:05] VITALS: BP 114/68
[2020-08-12 04:53] VITALS: BP 111/75
[2020-08-12] MEDS: ACETAMINOPHEN 325 MG TABLET PO PRN ×2 (05:30→23:26)
[2020-08-12 07:52] VITALS: BP 99/60
[2020-08-12] MEDS: PANTOPRAZOLE SODIUM 40 MG DR TABLET PO SCH (08:26)
[2020-08-12] MEDS: PYRAZINAMIDE 500 MG TABLET PO SCH (08:26)
[2020-08-12] MEDS: CALCITRIOL 0.25 MCG CAPSULE PO SCH (08:26)
[2020-08-12] MEDS: SODIUM BICARBONATE 650 MG TABLET PO SCH ×2 (08:26→19:33)
[2020-08-12] MEDS: ETHAMBUTOL HCL 400 MG TABLET PO SCH (08:26)
[2020-08-12] MEDS: CHOLECALCIFEROL (VIT D3) 5,000 [125 MCG] UNITS CAPSULE PO SCH (08:27)
[2020-08-12] MEDS: HEPARIN SODIUM,PORCINE 5,000 UNITS/ML VIAL SQ SCH ×3 (08:27→23:32)
[2020-08-12] MEDS: PYRIDOXINE HCL 50 MG TABLET PO SCH (08:27)
[2020-08-12] MEDS: DOCUSATE SODIUM 100 MG CAPSULE PO SCH ×2 (08:27→21:00)
[2020-08-12] MEDS: RIFAMPIN 300 MG CAPSULE PO SCH (08:27)
[2020-08-12] MEDS: ISONIAZID 300 MG TABLET PO SCH (08:27)
[2020-08-12] MEDS: EPOETIN ALFA 10,000 UNITS/ML VIAL SQ SCH (08:34)
[2020-08-12] MEDS: SOD FERRIC GLUC COMPLX/SUCROSE 125 MG in SODIUM CHLORIDE 0.9% 100 ML IV SCH (09:35)
[2020-08-12] MEDS: SODIUM BICARBONATE 75 MEQ in SODIUM CHLORIDE 0.45% 1,000 ML IV SCH (15:54)
[2020-08-12 20:48] VITALS: BP 101/58
[2020-08-12] MEDS: MORPHINE SULFATE 2 MG/ML SYRINGE IVP PRN (21:51)
[2020-08-13] MEDS: SODIUM BICARBONATE 75 MEQ in SODIUM CHLORIDE 0.45% 1,000 ML IV SCH (05:37)
[2020-08-13 05:40] VITALS: BP 153/50
[2020-08-13 07:53] VITALS: BP 93/62
[2020-08-13] MEDS: HEPARIN SODIUM,PORCINE 5,000 UNITS/ML VIAL SQ SCH ×3 (08:00→23:49)
[2020-08-13] MEDS: RIFAMPIN 300 MG CAPSULE PO SCH (08:06)
[2020-08-13] MEDS: SODIUM BICARBONATE 650 MG TABLET PO SCH ×2 (08:07→20:21)
[2020-08-13] MEDS: PYRIDOXINE HCL 50 MG TABLET PO SCH (08:07)
[2020-08-13] MEDS: PANTOPRAZOLE SODIUM 40 MG DR TABLET PO SCH (08:07)
[2020-08-13] MEDS: CHOLECALCIFEROL (VIT D3) 5,000 [125 MCG] UNITS CAPSULE PO SCH (08:07)
[2020-08-13] MEDS: CALCITRIOL 0.25 MCG CAPSULE PO SCH (08:07)
[2020-08-13] MEDS: ISONIAZID 300 MG TABLET PO SCH (08:07)
[2020-08-13] MEDS: DOCUSATE SODIUM 100 MG CAPSULE PO SCH ×3 (08:10→21:00)
[2020-08-13] MEDS ORDERED: LIDOCAINE/PF 1% 5 ML VIAL ONE (08:27)
[2020-08-13 10:07] LABS: QUANTIFERON, TB GOLD PLUS Positive (Negative)
[2020-08-13 10:10] LABS: GLUCOSE, CSF 51 mg/dL (50-80); TOTAL PROTEIN, CSF 23 mg/dL (15-45)
[2020-08-13 10:12] LABS: APPEARANCE,CSF CLEAR (CLEAR); COLOR,CSF COLORLESS (COLORLESS); CSF TOTAL VOLUME 12.8 mL; CSF TUBE NUMBER 4; LYMPHOCYTES1,CSF 0 %; MONOCYTES1,CSF 0 %; NEUTROPHILS1,CSF 0 %
[2020-08-13] MEDS: SOD FERRIC GLUC COMPLX/SUCROSE 125 MG in SODIUM CHLORIDE 0.9% 100 ML IV SCH (11:02)
[2020-08-13] MEDS: MORPHINE SULFATE 2 MG/ML SYRINGE IVP PRN (15:26)
[2020-08-13 19:55] VITALS: BP 121/74
[2020-08-13] MEDS: HYDROCODONE/ACETAMINOPHEN 5-325 MG TABLET PO PRN (20:28)
[2020-08-14] MEDS: MORPHINE SULFATE 2 MG/ML SYRINGE IVP PRN ×2 (00:02→05:26)
[2020-08-14] MEDS: SODIUM BICARBONATE 75 MEQ in SODIUM CHLORIDE 0.45% 1,000 ML IV SCH ×2 (05:21→15:03)
[2020-08-14 05:38] VITALS: BP 115/75
[2020-08-14 06:06] LABS: CALCIUM, TOTAL 8.4 mg/dL (8.8-10.5); CREATININE 2.59 mg/dL (0.60-1.30); MAGNESIUM 1.5 mg/dL (1.80-2.40); PHOSPHORUS 4.2 mg/dL (2.5-4.9); POTASSIUM 3.7 mmol/L (3.5-5.1)
[2020-08-14] MEDS: HEPARIN SODIUM,PORCINE 5,000 UNITS/ML VIAL SQ SCH ×3 (08:00→14:57)
[2020-08-14 08:11] VITALS: BP 110/72
[2020-08-14] MEDS: PYRAZINAMIDE 500 MG TABLET PO SCH (08:30)
[2020-08-14] MEDS: CALCITRIOL 0.25 MCG CAPSULE PO SCH (08:31)
[2020-08-14] MEDS: ETHAMBUTOL HCL 400 MG TABLET PO SCH (08:31)
[2020-08-14] MEDS: ISONIAZID 300 MG TABLET PO SCH (08:31)
[2020-08-14] MEDS: RIFAMPIN 300 MG CAPSULE PO SCH (08:31)
[2020-08-14] MEDS: SODIUM BICARBONATE 650 MG TABLET PO SCH ×2 (08:31→20:23)
[2020-08-14] MEDS: PANTOPRAZOLE SODIUM 40 MG DR TABLET PO SCH (08:31)
[2020-08-14] MEDS: CHOLECALCIFEROL (VIT D3) 5,000 [125 MCG] UNITS CAPSULE PO SCH (08:31)
[2020-08-14] MEDS: PYRIDOXINE HCL 50 MG TABLET PO SCH (08:32)
[2020-08-14] MEDS: DOCUSATE SODIUM 100 MG CAPSULE PO SCH ×2 (08:33→20:23)
[2020-08-14] MEDS ORDERED: MAGNESIUM SULFATE 2 GM/WATER 50 ML IV ONE (09:00)
[2020-08-14] MEDS ORDERED: SODIUM CHLORIDE 0.9% 250 ML IV ONE (09:22)
[2020-08-14] MEDS: SOD FERRIC GLUC COMPLX/SUCROSE 125 MG in SODIUM CHLORIDE 0.9% 100 ML IV SCH (11:42)
[2020-08-14] MEDS ORDERED: PENICILLIN G BENZATHINE LA 2,400,000 UNITS/4 ML SYRINGE IM ONE (14:00)
[2020-08-14 20:23] VITALS: BP 103/59
[2020-08-14] MEDS: ZOLPIDEM TARTRATE 5 MG TABLET PO PRN (20:30)
[2020-08-14] MEDS: HYDROCODONE/ACETAMINOPHEN 5-325 MG TABLET PO PRN (20:34)
[2020-08-15] MEDS: SODIUM BICARBONATE 75 MEQ in SODIUM CHLORIDE 0.45% 1,000 ML IV SCH ×2 (01:20→13:17)
[2020-08-15] MEDS: HEPARIN SODIUM,PORCINE 5,000 UNITS/ML VIAL SQ SCH ×4 (01:28→23:36)
[2020-08-15 05:28] VITALS: BP 114/73
[2020-08-15 06:23] LABS: MAGNESIUM 1.9 mg/dL (1.80-2.40)
[2020-08-15 07:48] VITALS: BP 113/89
[2020-08-15] MEDS: CHOLECALCIFEROL (VIT D3) 5,000 [125 MCG] UNITS CAPSULE PO SCH (08:42)
[2020-08-15] MEDS: PYRIDOXINE HCL 50 MG TABLET PO SCH (08:42)
[2020-08-15] MEDS: CALCITRIOL 0.25 MCG CAPSULE PO SCH (08:43)
[2020-08-15] MEDS: RIFAMPIN 300 MG CAPSULE PO SCH (08:43)
[2020-08-15] MEDS: DOCUSATE SODIUM 100 MG CAPSULE PO SCH ×2 (08:43→20:13)
[2020-08-15] MEDS: SODIUM BICARBONATE 650 MG TABLET PO SCH (08:43)
[2020-08-15] MEDS: PANTOPRAZOLE SODIUM 40 MG DR TABLET PO SCH (08:43)
[2020-08-15] MEDS: ISONIAZID 300 MG TABLET PO SCH (08:43)
[2020-08-15 09:07] LABS: CALCIUM, TOTAL 8.9 mg/dL (8.8-10.5); CREATININE 2.67 mg/dL (0.60-1.30)
[2020-08-15] MEDS: SOD FERRIC GLUC COMPLX/SUCROSE 125 MG in SODIUM CHLORIDE 0.9% 100 ML IV SCH (10:38)
[2020-08-15 19:45] VITALS: BP 117/76
[2020-08-15] MEDS: ZOLPIDEM TARTRATE 5 MG TABLET PO PRN (20:21)
[2020-08-15] MEDS: HYDROCODONE/ACETAMINOPHEN 5-325 MG TABLET PO PRN (20:21)
[2020-08-16 04:03] VITALS: BP 131/72
[2020-08-16] MEDS: ACETAMINOPHEN 325 MG TABLET PO PRN ×2 (05:13→21:13)
[2020-08-16 06:38] LABS: CALCIUM, TOTAL 9.2 mg/dL (8.8-10.5); CREATININE 2.71 mg/dL (0.60-1.30); MAGNESIUM 1.9 mg/dL (1.80-2.40); PHOSPHORUS 4.6 mg/dL (2.5-4.9)
[2020-08-16 08:27] VITALS: BP 121/70
[2020-08-16] MEDS: HEPARIN SODIUM,PORCINE 5,000 UNITS/ML VIAL SQ SCH ×2 (08:36→16:15)
[2020-08-16] MEDS: CALCITRIOL 0.25 MCG CAPSULE PO SCH (08:36)
[2020-08-16] MEDS: RIFAMPIN 300 MG CAPSULE PO SCH (08:36)
[2020-08-16] MEDS: CHOLECALCIFEROL (VIT D3) 5,000 [125 MCG] UNITS CAPSULE PO SCH (08:37)
[2020-08-16] MEDS: PYRAZINAMIDE 500 MG TABLET PO SCH (08:37)
[2020-08-16] MEDS: ISONIAZID 300 MG TABLET PO SCH (08:37)
[2020-08-16] MEDS: PANTOPRAZOLE SODIUM 40 MG DR TABLET PO SCH (08:37)
[2020-08-16] MEDS: ETHAMBUTOL HCL 400 MG TABLET PO SCH (08:37)
[2020-08-16] MEDS: PYRIDOXINE HCL 50 MG TABLET PO SCH (08:38)
[2020-08-16] MEDS: DOCUSATE SODIUM 100 MG CAPSULE PO SCH ×2 (09:00→20:31)
[2020-08-16 19:49] VITALS: BP 102/65
[2020-08-17] MEDS: HEPARIN SODIUM,PORCINE 5,000 UNITS/ML VIAL SQ SCH ×4 (00:08→23:46)
[2020-08-17 03:33] VITALS: BP 108/89
[2020-08-17] MEDS: HYDROCODONE/ACETAMINOPHEN 5-325 MG TABLET PO PRN (03:40)
[2020-08-17] MEDS: PYRIDOXINE HCL 50 MG TABLET PO SCH (08:00)
[2020-08-17] MEDS: ISONIAZID 300 MG TABLET PO SCH (08:00)
[2020-08-17] MEDS: CALCITRIOL 0.25 MCG CAPSULE PO SCH (08:00)
[2020-08-17] MEDS: RIFAMPIN 300 MG CAPSULE PO SCH (08:00)
[2020-08-17] MEDS: PANTOPRAZOLE SODIUM 40 MG DR TABLET PO SCH (08:00)
[2020-08-17] MEDS: CHOLECALCIFEROL (VIT D3) 5,000 [125 MCG] UNITS CAPSULE PO SCH (08:00)
[2020-08-17 08:04] VITALS: BP 120/80
[2020-08-17] MEDS: DOCUSATE SODIUM 100 MG CAPSULE PO SCH ×2 (08:29→21:00)
[2020-08-17 09:00] LABS: CALCIUM, TOTAL 9.6 mg/dL (8.8-10.5); CREATININE 2.91 mg/dL (0.60-1.30)
[2020-08-17] MEDS: ACETAMINOPHEN 325 MG TABLET PO PRN ×2 (12:57→20:25)
[2020-08-17 15:37] VITALS: BP 113/70
[2020-08-17 20:25] VITALS: BP 118/78
[2020-08-18] MEDS: ACETAMINOPHEN 325 MG TABLET PO PRN (03:27)
[2020-08-18 03:28] VITALS: BP 119/73
[2020-08-18 07:21] LABS: BASOPHILS % (AUTO) 1.1 % (0.0-2.0); HEMATOCRIT 27.2 % (41-53); HEMOGLOBIN 8.5 g/dL (13.5-17.5); LYMPHOCYTES # (AUTO) 1.4 K/uL (1.0-4.8); LYMPHOCYTES % (AUTO) 26.3 % (22.0-44.0); MEAN CORPUSCULAR HEMOGLOBIN 24.8 pg (26.0-34.0); MEAN CORPUSCULAR HGB CONC 31.1 G/dL (31.0-37.0); MEAN CORPUSCULAR VOLUME 80 fL (80-100); MONOCYTES # (AUTO) 0.7 K/uL (0.1-1.0); NEUTROPHILS % (AUTO) 56.6 % (40.0-70.0); PLATELET COUNT (AUTO) 432 K/uL (150-450); RED BLOOD CELL COUNT(AUTO) 3.42 MIL/uL (4.50-5.90); RED CELL DISTRIBUTION WIDTH 29.1 % (11.5-14.5)
[2020-08-18 07:43] VITALS: BP 117/77
[2020-08-18] MEDS: ISONIAZID 300 MG TABLET PO SCH (09:10)
[2020-08-18] MEDS: PYRIDOXINE HCL 50 MG TABLET PO SCH (09:10)
[2020-08-18] MEDS: CALCITRIOL 0.25 MCG CAPSULE PO SCH (09:10)
[2020-08-18] MEDS: HEPARIN SODIUM,PORCINE 5,000 UNITS/ML VIAL SQ SCH ×2 (09:11→16:38)
[2020-08-18] MEDS: DOCUSATE SODIUM 100 MG CAPSULE PO SCH ×2 (09:11→20:16)
[2020-08-18] MEDS: CHOLECALCIFEROL (VIT D3) 5,000 [125 MCG] UNITS CAPSULE PO SCH (09:11)
[2020-08-18] MEDS: PANTOPRAZOLE SODIUM 40 MG DR TABLET PO SCH (09:11)
[2020-08-18] MEDS: RIFAMPIN 300 MG CAPSULE PO SCH (09:11)
[2020-08-18 09:46] LABS: ALBUMIN 1.1 g/dL (3.4-5.0); BILIRUBIN,TOTAL 0.1 mg/dL (0.1-1.0); CREATININE 2.81 mg/dL (0.60-1.30); POTASSIUM 3.8 mmol/L (3.5-5.1); TOTAL PROTEIN, SERUM 7.2 g/dL (6.4-8.2)
[2020-08-18 09:50] LABS: CALCIUM, TOTAL 9.6 mg/dL (8.8-10.5)
[2020-08-18] MEDS: HYDROCODONE/ACETAMINOPHEN 5-325 MG TABLET PO PRN ×2 (14:02→20:13)
[2020-08-18] MEDS: SULFAMETHOX/TRIMETH DS 800-160 MG/TABLET PO SCH (20:13)
[2020-08-18 20:15] VITALS: BP 120/79
[2020-08-19] MEDS: HEPARIN SODIUM,PORCINE 5,000 UNITS/ML VIAL SQ SCH ×4 (00:26→23:05)
[2020-08-19] MEDS: HYDROCODONE/ACETAMINOPHEN 5-325 MG TABLET PO PRN ×2 (00:32→21:07)
[2020-08-19 04:42] VITALS: BP 123/82
[2020-08-19 08:02] VITALS: BP 130/79
[2020-08-19] MEDS: ETHAMBUTOL HCL 400 MG TABLET PO SCH (09:23)
[2020-08-19] MEDS: CHOLECALCIFEROL (VIT D3) 5,000 [125 MCG] UNITS CAPSULE PO SCH (09:23)
[2020-08-19] MEDS: ISONIAZID 300 MG TABLET PO SCH (09:23)
[2020-08-19] MEDS: CALCITRIOL 0.25 MCG CAPSULE PO SCH (09:23)
[2020-08-19] MEDS: PYRAZINAMIDE 500 MG TABLET PO SCH (09:23)
[2020-08-19] MEDS: SULFAMETHOX/TRIMETH DS 800-160 MG/TABLET PO SCH ×2 (09:23→20:22)
[2020-08-19] MEDS: RIFAMPIN 300 MG CAPSULE PO SCH (09:24)
[2020-08-19] MEDS: PYRIDOXINE HCL 50 MG TABLET PO SCH (09:24)
[2020-08-19] MEDS: DOCUSATE SODIUM 100 MG CAPSULE PO SCH ×2 (09:24→20:22)
[2020-08-19] MEDS: PANTOPRAZOLE SODIUM 40 MG DR TABLET PO SCH (09:24)
[2020-08-19] MEDS: EPOETIN ALFA 10,000 UNITS/ML VIAL SQ SCH (09:26)
[2020-08-19 09:37] LABS: CALCIUM, TOTAL 10.3 mg/dL (8.8-10.5); CREATININE 2.96 mg/dL (0.60-1.30); POTASSIUM 3.7 mmol/L (3.5-5.1)
[2020-08-19] MEDS: ACETAMINOPHEN 325 MG TABLET PO PRN (10:13)
[2020-08-19 20:38] VITALS: BP 107/77
[2020-08-20 05:05] VITALS: BP_SYST 111; BP_SYST 121; BP_DIAS 69; BP_DIAS 77
[2020-08-20 08:24] VITALS: BP 105/3
[2020-08-20] MEDS: RIFAMPIN 300 MG CAPSULE PO SCH (08:27)
[2020-08-20] MEDS: PYRIDOXINE HCL 50 MG TABLET PO SCH (08:27)
[2020-08-20] MEDS: ISONIAZID 300 MG TABLET PO SCH (08:27)
[2020-08-20] MEDS: PANTOPRAZOLE SODIUM 40 MG DR TABLET PO SCH (08:27)
[2020-08-20] MEDS: DOCUSATE SODIUM 100 MG CAPSULE PO SCH ×2 (08:27→20:17)
[2020-08-20] MEDS: SULFAMETHOX/TRIMETH DS 800-160 MG/TABLET PO SCH ×2 (08:27→20:17)
[2020-08-20] MEDS: HEPARIN SODIUM,PORCINE 5,000 UNITS/ML VIAL SQ SCH ×3 (08:28→23:24)
[2020-08-20 19:48] VITALS: BP 109/66
[2020-08-21 04:58] VITALS: BP 126/73
[2020-08-21 07:06] LABS: ALBUMIN 1.3 g/dL (3.4-5.0); CALCIUM, TOTAL 10.5 mg/dL (8.8-10.5); CREATININE 3.52 mg/dL (0.60-1.30); POTASSIUM 4.6 mmol/L (3.5-5.1); TOTAL PROTEIN, SERUM 7.6 g/dL (6.4-8.2)
[2020-08-21 07:16] LABS: BASOPHILS % (AUTO) 1.8 % (0.0-2.0); HEMATOCRIT 29.3 % (41-53); LYMPHOCYTES # (AUTO) 1.7 K/uL (1.0-4.8); MEAN CORPUSCULAR HEMOGLOBIN 25.1 pg (26.0-34.0); MEAN CORPUSCULAR HGB CONC 30.8 G/dL (31.0-37.0); MEAN CORPUSCULAR VOLUME 82 fL (80-100); MONOCYTES # (AUTO) 0.7 K/uL (0.1-1.0); MONOCYTES % (AUTO) 13.3 % (2.0-9.0); NEUTROPHILS # (AUTO) 2.4 K/uL (1.8-7.7); NEUTROPHILS % (AUTO) 45.9 % (40.0-70.0); PLATELET COUNT (AUTO) 498 K/uL (150-450); RED BLOOD CELL COUNT(AUTO) 3.58 MIL/uL (4.50-5.90); RED CELL DISTRIBUTION WIDTH 29.4 % (11.5-14.5)
[2020-08-21 08:00] VITALS: BP 120/69
[2020-08-21] MEDS: HEPARIN SODIUM,PORCINE 5,000 UNITS/ML VIAL SQ SCH ×3 (08:36→23:03)
[2020-08-21] MEDS: DOCUSATE SODIUM 100 MG CAPSULE PO SCH ×3 (08:37→19:56)
[2020-08-21] MEDS: PANTOPRAZOLE SODIUM 40 MG DR TABLET PO SCH (08:37)
[2020-08-21] MEDS: RIFAMPIN 300 MG CAPSULE PO SCH (08:38)
[2020-08-21] MEDS: ETHAMBUTOL HCL 400 MG TABLET PO SCH (08:38)
[2020-08-21] MEDS: SULFAMETHOX/TRIMETH DS 800-160 MG/TABLET PO SCH ×2 (08:38→19:48)
[2020-08-21] MEDS: PYRAZINAMIDE 500 MG TABLET PO SCH (08:38)
[2020-08-21] MEDS: ISONIAZID 300 MG TABLET PO SCH (08:38)
[2020-08-21] MEDS: PYRIDOXINE HCL 50 MG TABLET PO SCH (08:38)
[2020-08-21 08:53] LABS: BILIRUBIN,TOTAL 0.1 mg/dL (0.1-1.0)
[2020-08-21] MEDS ORDERED: PENICILLIN G BENZATHINE LA 2,400,000 UNITS/4 ML SYRINGE IM ONE (09:00)
[2020-08-21] MEDS: HYDROCODONE/ACETAMINOPHEN 5-325 MG TABLET PO PRN ×2 (13:27→19:50)
[2020-08-21] MEDS: ZOLPIDEM TARTRATE 5 MG TABLET PO PRN (19:48)
[2020-08-21 20:00] VITALS: BP 122/69
[2020-08-22 08:05] VITALS: BP 99/61
[2020-08-22] MEDS: DOCUSATE SODIUM 100 MG CAPSULE PO SCH ×2 (09:00→20:53)
[2020-08-22] MEDS: HEPARIN SODIUM,PORCINE 5,000 UNITS/ML VIAL SQ SCH ×3 (09:12→23:42)
[2020-08-22] MEDS: PYRIDOXINE HCL 50 MG TABLET PO SCH (09:12)
[2020-08-22] MEDS: RIFAMPIN 300 MG CAPSULE PO SCH (09:13)
[2020-08-22] MEDS: PANTOPRAZOLE SODIUM 40 MG DR TABLET PO SCH (09:13)
[2020-08-22] MEDS: SULFAMETHOX/TRIMETH DS 800-160 MG/TABLET PO SCH (09:13)
[2020-08-22] MEDS: ISONIAZID 300 MG TABLET PO SCH (09:13)
[2020-08-22] MEDS ORDERED: 0.9% SODIUM CHLORIDE 5 ML NEB SOLUTION NEB ONE (19:21)
[2020-08-22] MEDS: ZOLPIDEM TARTRATE 5 MG TABLET PO PRN (19:32)
[2020-08-22 20:00] VITALS: BP 118/65
[2020-08-22] MEDS: DOXYCYCLINE HYCLATE 100 MG TABLET PO SCH (21:53)
[2020-08-23 05:08] VITALS: BP 117/74
[2020-08-23] MEDS ORDERED: SODIUM CHLORIDE 3% 15 ML NEB SOLUTION NEB ONE ×2 (05:39→19:19)
[2020-08-23] MEDS ORDERED: 0.9% SODIUM CHLORIDE 5 ML NEB SOLUTION NEB ONE (05:50)
[2020-08-23 07:22] LABS: CALCIUM, TOTAL 10.6 mg/dL (8.8-10.5); CREATININE 3.56 mg/dL (0.60-1.30); MAGNESIUM 2.1 mg/dL (1.80-2.40); POTASSIUM 4.4 mmol/L (3.5-5.1)
[2020-08-23 08:25] VITALS: BP 109/69
[2020-08-23] MEDS: PYRAZINAMIDE 500 MG TABLET PO SCH (08:32)
[2020-08-23] MEDS: PANTOPRAZOLE SODIUM 40 MG DR TABLET PO SCH (08:32)
[2020-08-23] MEDS: ISONIAZID 300 MG TABLET PO SCH (08:32)
[2020-08-23] MEDS: HEPARIN SODIUM,PORCINE 5,000 UNITS/ML VIAL SQ SCH ×3 (08:32→23:00)
[2020-08-23] MEDS: RIFAMPIN 300 MG CAPSULE PO SCH (08:32)
[2020-08-23] MEDS: DOCUSATE SODIUM 100 MG CAPSULE PO SCH ×2 (08:32→20:01)
[2020-08-23] MEDS: ETHAMBUTOL HCL 400 MG TABLET PO SCH (08:32)
[2020-08-23] MEDS: DOXYCYCLINE HYCLATE 100 MG TABLET PO SCH ×2 (08:32→20:01)
[2020-08-23] MEDS: PYRIDOXINE HCL 50 MG TABLET PO SCH (08:32)
[2020-08-23 08:33] LABS: EOSINOPHILS % (AUTO) 7.4 % (1.0-6.0); HEMATOCRIT 29.7 % (41-53); HEMOGLOBIN 9.2 g/dL (13.5-17.5); LYMPHOCYTES # (AUTO) 1.7 K/uL (1.0-4.8); LYMPHOCYTES % (AUTO) 32.3 % (22.0-44.0); MEAN CORPUSCULAR HEMOGLOBIN 25.8 pg (26.0-34.0); MEAN CORPUSCULAR HGB CONC 31.1 G/dL (31.0-37.0); MEAN CORPUSCULAR VOLUME 83 fL (80-100); MONOCYTES # (AUTO) 0.6 K/uL (0.1-1.0); MONOCYTES % (AUTO) 12.2 % (2.0-9.0); NEUTROPHILS # (AUTO) 2.5 K/uL (1.8-7.7); NEUTROPHILS % (AUTO) 47.1 % (40.0-70.0); PLATELET COUNT (AUTO) 483 K/uL (150-450); RED BLOOD CELL COUNT(AUTO) 3.57 MIL/uL (4.50-5.90); RED CELL DISTRIBUTION WIDTH 29.9 % (11.5-14.5)
[2020-08-23 19:45] VITALS: BP 115/87
[2020-08-23] MEDS: HYDROCODONE/ACETAMINOPHEN 5-325 MG TABLET PO PRN (20:01)
[2020-08-24 05:45] VITALS: BP 119/79
[2020-08-24 06:39] LABS: BASOPHILS % (AUTO) 1.2 % (0.0-2.0); EOSINOPHILS % (AUTO) 9.4 % (1.0-6.0); HEMATOCRIT 28.6 % (41-53); LYMPHOCYTES # (AUTO) 1.7 K/uL (1.0-4.8); LYMPHOCYTES % (AUTO) 31.4 % (22.0-44.0); MEAN CORPUSCULAR HEMOGLOBIN 26.2 pg (26.0-34.0); MEAN CORPUSCULAR HGB CONC 31.4 G/dL (31.0-37.0); MEAN CORPUSCULAR VOLUME 83 fL (80-100); MONOCYTES # (AUTO) 0.5 K/uL (0.1-1.0); MONOCYTES % (AUTO) 9.8 % (2.0-9.0); NEUTROPHILS # (AUTO) 2.7 K/uL (1.8-7.7); NEUTROPHILS % (AUTO) 48.2 % (40.0-70.0); PLATELET COUNT (AUTO) 453 K/uL (150-450); RED BLOOD CELL COUNT(AUTO) 3.44 MIL/uL (4.50-5.90); RED CELL DISTRIBUTION WIDTH 30.7 % (11.5-14.5)
[2020-08-24 06:57] LABS: CALCIUM, TOTAL 10.2 mg/dL (8.8-10.5); CREATININE 3.19 mg/dL (0.60-1.30); MAGNESIUM 1.9 mg/dL (1.80-2.40); POTASSIUM 4.4 mmol/L (3.5-5.1)
[2020-08-24 07:31] VITALS: BP 106/72
[2020-08-24] MEDS: ISONIAZID 300 MG TABLET PO SCH (08:23)
[2020-08-24] MEDS: HEPARIN SODIUM,PORCINE 5,000 UNITS/ML VIAL SQ SCH ×3 (08:23→23:14)
[2020-08-24] MEDS: RIFAMPIN 300 MG CAPSULE PO SCH (08:23)
[2020-08-24] MEDS: PYRIDOXINE HCL 50 MG TABLET PO SCH (08:23)
[2020-08-24] MEDS: DOXYCYCLINE HYCLATE 100 MG TABLET PO SCH ×2 (08:23→20:21)
[2020-08-24] MEDS: PANTOPRAZOLE SODIUM 40 MG DR TABLET PO SCH (08:24)
[2020-08-24] MEDS: DOCUSATE SODIUM 100 MG CAPSULE PO SCH ×2 (08:30→20:23)
[2020-08-24] MEDS: ACETAMINOPHEN 325 MG TABLET PO PRN (15:42)
[2020-08-24 20:20] VITALS: BP 129/69
[2020-08-25 05:30] VITALS: BP 97/61
[2020-08-25 08:00] VITALS: BP 109/69
[2020-08-25] MEDS: PANTOPRAZOLE SODIUM 40 MG DR TABLET PO SCH (08:23)
[2020-08-25] MEDS: ISONIAZID 300 MG TABLET PO SCH (08:23)
[2020-08-25] MEDS: DOXYCYCLINE HYCLATE 100 MG TABLET PO SCH (08:23)
[2020-08-25] MEDS: HEPARIN SODIUM,PORCINE 5,000 UNITS/ML VIAL SQ SCH ×2 (08:24→15:19)
[2020-08-25] MEDS: PYRIDOXINE HCL 50 MG TABLET PO SCH (08:24)
[2020-08-25] MEDS: RIFAMPIN 300 MG CAPSULE PO SCH (08:24)
[2020-08-25] MEDS: DOCUSATE SODIUM 100 MG CAPSULE PO SCH ×2 (08:32→21:00)
[2020-08-25 20:23] VITALS: BP 119/76
[2020-08-26] MEDS: HEPARIN SODIUM,PORCINE 5,000 UNITS/ML VIAL SQ SCH ×3 (00:02→16:00)
[2020-08-26 04:00] VITALS: BP 90/55
[2020-08-26 06:50] LABS: CALCIUM, TOTAL 10.6 mg/dL (8.8-10.5); CREATININE 2.76 mg/dL (0.60-1.30); POTASSIUM 4.4 mmol/L (3.5-5.1)
[2020-08-26 07:27] VITALS: BP 124/62
[2020-08-26] MEDS: DOCUSATE SODIUM 100 MG CAPSULE PO SCH ×2 (08:43→21:00)
[2020-08-26] MEDS: ISONIAZID 300 MG TABLET PO SCH (08:43)
[2020-08-26] MEDS: RIFAMPIN 300 MG CAPSULE PO SCH (08:43)
[2020-08-26] MEDS: PYRAZINAMIDE 500 MG TABLET PO SCH (08:43)
[2020-08-26] MEDS: ETHAMBUTOL HCL 400 MG TABLET PO SCH (08:44)
[2020-08-26] MEDS: PANTOPRAZOLE SODIUM 40 MG DR TABLET PO SCH (08:44)
[2020-08-26] MEDS: PYRIDOXINE HCL 50 MG TABLET PO SCH (08:44)
[2020-08-26] MEDS: EPOETIN ALFA 10,000 UNITS/ML VIAL SQ SCH (09:31)
[2020-08-26] MEDS: ACETAMINOPHEN 325 MG TABLET PO PRN (15:30)
[2020-08-26 20:25] VITALS: BP 124/69
[2020-08-27] MEDS: HEPARIN SODIUM,PORCINE 5,000 UNITS/ML VIAL SQ SCH ×4 (00:05→23:55)
[2020-08-27 04:40] VITALS: BP 115/73
[2020-08-27] MEDS: ISONIAZID 300 MG TABLET PO SCH (08:00)
[2020-08-27] MEDS: PYRIDOXINE HCL 50 MG TABLET PO SCH (08:00)
[2020-08-27] MEDS: RIFAMPIN 300 MG CAPSULE PO SCH (08:00)
[2020-08-27] MEDS: PANTOPRAZOLE SODIUM 40 MG DR TABLET PO SCH (08:00)
[2020-08-27] MEDS: DOCUSATE SODIUM 100 MG CAPSULE PO SCH ×3 (08:00→20:06)
[2020-08-27 08:02] VITALS: BP 113/92
[2020-08-27] MEDS: NYSTATIN 30 GM CREAM TP SCH ×2 (18:11→20:06)
[2020-08-27 19:52] VITALS: BP 113/81
[2020-08-27] MEDS: ZOLPIDEM TARTRATE 5 MG TABLET PO PRN (23:55)
[2020-08-28 04:00] VITALS: BP 119/78
[2020-08-28 07:24] LABS: ANION GAP 6 mmol/L (8-16); CALCIUM, TOTAL 11.4 mg/dL (8.8-10.5); CARBON DIOXIDE 24 mmol/L (22-29); CHLORIDE 102 mmol/L (98-107); CREATININE 2.68 mg/dL (0.60-1.30); GLOMERULAR FILTR. RATE CALC 27 mL/min (>60); GLUCOSE,RANDOM 120 mg/dL (70-110); POTASSIUM 4.1 mmol/L (3.5-5.1); SODIUM SERUM 132 mmol/L (136-145); UREA NITROGEN, BLOOD 58 mg/dL (7-18)
[2020-08-28 07:45] VITALS: BP 112/92
[2020-08-28] MEDS: HEPARIN SODIUM,PORCINE 5,000 UNITS/ML VIAL SQ SCH ×2 (08:46→16:47)
[2020-08-28] MEDS: RIFAMPIN 300 MG CAPSULE PO SCH (08:47)
[2020-08-28] MEDS: ETHAMBUTOL HCL 400 MG TABLET PO SCH (08:47)
[2020-08-28] MEDS: PYRAZINAMIDE 500 MG TABLET PO SCH (08:47)
[2020-08-28] MEDS: PANTOPRAZOLE SODIUM 40 MG DR TABLET PO SCH (08:48)
[2020-08-28] MEDS: ISONIAZID 300 MG TABLET PO SCH (08:48)
[2020-08-28] MEDS: PYRIDOXINE HCL 50 MG TABLET PO SCH (08:49)
[2020-08-28] MEDS ORDERED: PENICILLIN G BENZATHINE LA 2,400,000 UNITS/4 ML SYRINGE IM ONE (09:00)
[2020-08-28] MEDS: DOCUSATE SODIUM 100 MG CAPSULE PO SCH ×2 (09:00→20:31)
[2020-08-28] MEDS: NYSTATIN 30 GM CREAM TP SCH ×2 (09:36→20:22)
[2020-08-28 12:37] LABS: ALANINE AMINOTRANSFERASE 22 U/L (12-78); ALBUMIN 1.6 g/dL (3.4-5.0); ALKALINE PHOSPHATASE 142 U/L (46-116); ASPARTATE AMINOTRANSFERASE 27 U/L (15-37); TOTAL PROTEIN, SERUM 8.2 g/dL (6.4-8.2)
[2020-08-28 12:55] LABS: BILIRUBIN,DIRECT < 0.05 mg/dL (0.00-0.20); BILIRUBIN,TOTAL < 0.1 mg/dL (0.1-1.0)
[2020-08-28] MEDS: SODIUM CHLORIDE 0.9% 1,000 ML IV SCH ×2 (13:15→23:08)
[2020-08-28 19:20] VITALS: BP 113/72
[2020-08-28] MEDS: SODIUM CHLORIDE 1 GM TABLET PO SCH (20:22)
[2020-08-28] MEDS: ZOLPIDEM TARTRATE 5 MG TABLET PO PRN (20:27)
[2020-08-28 22:15] VITALS: BP 121/75
[2020-08-29 04:51] VITALS: BP 111/74
[2020-08-29 08:10] VITALS: BP 114/76
[2020-08-29] MEDS: RIFAMPIN 300 MG CAPSULE PO SCH (08:23)
[2020-08-29] MEDS: SODIUM CHLORIDE 1 GM TABLET PO SCH ×3 (08:24→21:12)
[2020-08-29] MEDS: PYRIDOXINE HCL 50 MG TABLET PO SCH (08:24)
[2020-08-29] MEDS: PANTOPRAZOLE SODIUM 40 MG DR TABLET PO SCH (08:24)
[2020-08-29] MEDS: ISONIAZID 300 MG TABLET PO SCH (08:24)
[2020-08-29] MEDS: NYSTATIN 30 GM CREAM TP SCH ×2 (08:24→21:12)
[2020-08-29] MEDS: HEPARIN SODIUM,PORCINE 5,000 UNITS/ML VIAL SQ SCH ×3 (08:25→16:16)
[2020-08-29] MEDS: DOCUSATE SODIUM 100 MG CAPSULE PO SCH ×3 (08:41→21:12)
[2020-08-29 12:42] LABS: CALCIUM, TOTAL 11.3 mg/dL (8.8-10.5); CREATININE 2.72 mg/dL (0.60-1.30)
[2020-08-29] MEDS ORDERED: DiphenhydrAMINE HCL 25 MG CAPSULE PO PRN (13:45)
[2020-08-29] MEDS: SODIUM CHLORIDE 0.9% 1,000 ML IV SCH (19:15)
[2020-08-29 19:27] VITALS: BP 117/77
[2020-08-29] MEDS: HYDROCODONE/ACETAMINOPHEN 5-325 MG TABLET PO PRN (21:12)
[2020-08-29] MEDS: ZOLPIDEM TARTRATE 5 MG TABLET PO PRN (21:12)
[2020-08-30] MEDS: HEPARIN SODIUM,PORCINE 5,000 UNITS/ML VIAL SQ SCH ×3 (00:05→16:04)
[2020-08-30 04:30] VITALS: BP 127/78
[2020-08-30] MEDS: SODIUM CHLORIDE 0.9% 1,000 ML IV SCH ×2 (05:15→15:15)
[2020-08-30 06:39] LABS: CALCIUM, TOTAL 11.2 mg/dL (8.8-10.5); CREATININE 2.72 mg/dL (0.60-1.30); POTASSIUM 4.2 mmol/L (3.5-5.1)
[2020-08-30 07:57] VITALS: BP 120/80
[2020-08-30] MEDS: PANTOPRAZOLE SODIUM 40 MG DR TABLET PO SCH (08:20)
[2020-08-30] MEDS: SODIUM CHLORIDE 1 GM TABLET PO SCH ×3 (08:20→19:55)
[2020-08-30] MEDS: PYRIDOXINE HCL 50 MG TABLET PO SCH (08:21)
[2020-08-30] MEDS: DOCUSATE SODIUM 100 MG CAPSULE PO SCH ×2 (08:21→20:03)
[2020-08-30] MEDS: ETHAMBUTOL HCL 400 MG TABLET PO SCH (11:53)
[2020-08-30] MEDS: NYSTATIN 30 GM CREAM TP SCH ×2 (11:53→19:55)
[2020-08-30] MEDS: ISONIAZID 300 MG TABLET PO SCH (11:54)
[2020-08-30] MEDS: RIFAMPIN 300 MG CAPSULE PO SCH (11:54)
[2020-08-30] MEDS: PYRAZINAMIDE 500 MG TABLET PO SCH (11:54)
[2020-08-30] MEDS: CINACALCET HCL 30 MG TABLET PO SCH (15:22)
[2020-08-30 19:30] VITALS: BP 108/67
[2020-08-30] MEDS: HYDROCODONE/ACETAMINOPHEN 5-325 MG TABLET PO PRN (19:55)
[2020-08-30] MEDS: ZOLPIDEM TARTRATE 5 MG TABLET PO PRN (19:56)
[2020-08-31] MEDS ORDERED: SODIUM CHLORIDE 3% 15 ML NEB SOLUTION NEB ONE (00:07)
[2020-08-31] MEDS: SODIUM CHLORIDE 0.9% 1,000 ML IV SCH ×3 (01:15→20:51)
[2020-08-31 04:42] VITALS: BP 103/76
[2020-08-31 07:05] LABS: CALCIUM, TOTAL 10.2 mg/dL (8.8-10.5); CREATININE 2.62 mg/dL (0.60-1.30); POTASSIUM 3.9 mmol/L (3.5-5.1)
[2020-08-31 08:01] VITALS: BP 134/85
[2020-08-31] MEDS: RIFAMPIN 300 MG CAPSULE PO SCH (08:01)
[2020-08-31] MEDS: CINACALCET HCL 30 MG TABLET PO SCH (08:02)
[2020-08-31] MEDS: SODIUM CHLORIDE 1 GM TABLET PO SCH ×3 (08:03→20:45)
[2020-08-31] MEDS: PANTOPRAZOLE SODIUM 40 MG DR TABLET PO SCH (08:03)
[2020-08-31] MEDS: ISONIAZID 300 MG TABLET PO SCH (08:03)
[2020-08-31] MEDS: HEPARIN SODIUM,PORCINE 5,000 UNITS/ML VIAL SQ SCH ×3 (08:03→16:27)
[2020-08-31] MEDS: DOCUSATE SODIUM 100 MG CAPSULE PO SCH ×2 (08:14→20:47)
[2020-08-31] MEDS: PYRIDOXINE HCL 50 MG TABLET PO SCH (09:28)
[2020-08-31] MEDS: NYSTATIN 30 GM CREAM TP SCH ×2 (09:28→20:47)
[2020-08-31 20:10] VITALS: BP 114/69
[2020-08-31] MEDS: ZOLPIDEM TARTRATE 5 MG TABLET PO PRN (20:45)
[2020-09-01 05:13] VITALS: BP 124/89
[2020-09-01] MEDS: SODIUM CHLORIDE 0.9% 1,000 ML IV SCH ×3 (07:15→21:33)
[2020-09-01 07:57] VITALS: BP 133/81
[2020-09-01] MEDS: HEPARIN SODIUM,PORCINE 5,000 UNITS/ML VIAL SQ SCH ×3 (08:44→16:09)
[2020-09-01] MEDS: PANTOPRAZOLE SODIUM 40 MG DR TABLET PO SCH (08:44)
[2020-09-01] MEDS: SODIUM CHLORIDE 1 GM TABLET PO SCH ×3 (08:45→20:04)
[2020-09-01] MEDS: CINACALCET HCL 30 MG TABLET PO SCH (08:45)
[2020-09-01] MEDS: PYRIDOXINE HCL 50 MG TABLET PO SCH (08:45)
[2020-09-01] MEDS: ISONIAZID 300 MG TABLET PO SCH (08:45)
[2020-09-01] MEDS: RIFAMPIN 300 MG CAPSULE PO SCH (08:46)
[2020-09-01] MEDS: NYSTATIN 30 GM CREAM TP SCH ×3 (08:46→20:04)
[2020-09-01] MEDS: DOCUSATE SODIUM 100 MG CAPSULE PO SCH ×3 (09:00→20:09)
[2020-09-01 20:38] VITALS: BP 138/73
[2020-09-02] MEDS: HEPARIN SODIUM,PORCINE 5,000 UNITS/ML VIAL SQ SCH ×3 (00:41→16:19)
[2020-09-02 05:11] VITALS: BP 109/52
[2020-09-02 06:16] LABS: BASOPHILS % (AUTO) 1.6 % (0.0-2.0); EOSINOPHILS % (AUTO) 2.4 % (1.0-6.0); HEMATOCRIT 32.9 % (41-53); HEMOGLOBIN 10.6 g/dL (13.5-17.5); LYMPHOCYTES # (AUTO) 1.4 K/uL (1.0-4.8); MEAN CORPUSCULAR HEMOGLOBIN 28.1 pg (26.0-34.0); MEAN CORPUSCULAR HGB CONC 32.1 G/dL (31.0-37.0); MEAN CORPUSCULAR VOLUME 87 fL (80-100); MONOCYTES # (AUTO) 0.4 K/uL (0.1-1.0); MONOCYTES % (AUTO) 8.3 % (2.0-9.0); NEUTROPHILS % (AUTO) 59.7 % (40.0-70.0); PLATELET COUNT (AUTO) 324 K/uL (150-450); RED BLOOD CELL COUNT(AUTO) 3.77 MIL/uL (4.50-5.90); RED CELL DISTRIBUTION WIDTH 29.3 % (11.5-14.5)
[2020-09-02 06:33] LABS: ALBUMIN 1.5 g/dL (3.4-5.0); BILIRUBIN,TOTAL 0.1 mg/dL (0.1-1.0); CALCIUM, TOTAL 10.2 mg/dL (8.8-10.5); CREATININE 2.49 mg/dL (0.60-1.30); PHOSPHORUS 3.7 mg/dL (2.5-4.9); POTASSIUM 3.9 mmol/L (3.5-5.1); TOTAL PROTEIN, SERUM 7.7 g/dL (6.4-8.2)
[2020-09-02 07:40] VITALS: BP 112/75
[2020-09-02] MEDS: SODIUM CHLORIDE 1 GM TABLET PO SCH ×3 (08:18→20:05)
[2020-09-02] MEDS: NYSTATIN 30 GM CREAM TP SCH ×4 (08:18→18:56)
[2020-09-02] MEDS: CINACALCET HCL 30 MG TABLET PO SCH (08:19)
[2020-09-02] MEDS: PANTOPRAZOLE SODIUM 40 MG DR TABLET PO SCH (08:19)
[2020-09-02] MEDS: DOCUSATE SODIUM 100 MG CAPSULE PO SCH ×4 (08:19→20:11)
[2020-09-02] MEDS: PYRAZINAMIDE 500 MG TABLET PO SCH (08:19)
[2020-09-02] MEDS: ISONIAZID 300 MG TABLET PO SCH (08:19)
[2020-09-02] MEDS: PYRIDOXINE HCL 50 MG TABLET PO SCH (08:19)
[2020-09-02] MEDS: ETHAMBUTOL HCL 400 MG TABLET PO SCH (08:19)
[2020-09-02] MEDS: RIFAMPIN 300 MG CAPSULE PO SCH (08:19)
[2020-09-02] MEDS: EPOETIN ALFA 10,000 UNITS/ML VIAL SQ SCH (11:07)
[2020-09-02] MEDS: SODIUM CHLORIDE 0.9% 1,000 ML IV SCH ×2 (11:10→21:07)
[2020-09-02] MEDS: ACETAMINOPHEN 325 MG TABLET PO PRN (16:41)
[2020-09-02 20:01] VITALS: BP 113/78
[2020-09-03] MEDS: HEPARIN SODIUM,PORCINE 5,000 UNITS/ML VIAL SQ SCH ×4 (00:03→23:57)
[2020-09-03 04:10] VITALS: BP 109/51
[2020-09-03 08:00] VITALS: BP 103/71
[2020-09-03] MEDS: SODIUM CHLORIDE 0.9% 1,000 ML IV SCH ×2 (08:14→18:50)
[2020-09-03] MEDS: SODIUM CHLORIDE 1 GM TABLET PO SCH ×3 (08:14→20:52)
[2020-09-03] MEDS: PYRIDOXINE HCL 50 MG TABLET PO SCH (08:14)
[2020-09-03] MEDS: NYSTATIN 30 GM CREAM TP SCH ×3 (08:14→21:01)
[2020-09-03] MEDS: CINACALCET HCL 30 MG TABLET PO SCH (08:14)
[2020-09-03] MEDS: RIFAMPIN 300 MG CAPSULE PO SCH (08:14)
[2020-09-03] MEDS: PANTOPRAZOLE SODIUM 40 MG DR TABLET PO SCH (08:14)
[2020-09-03] MEDS: ISONIAZID 300 MG TABLET PO SCH (08:15)
[2020-09-03] MEDS: DOCUSATE SODIUM 100 MG CAPSULE PO SCH ×2 (08:15→21:00)
[2020-09-03 20:23] VITALS: BP 112/64
[2020-09-03 23:23] VITALS: BP 120/77
[2020-09-04] MEDS: ZOLPIDEM TARTRATE 5 MG TABLET PO PRN (00:52)
[2020-09-04 05:03] VITALS: BP 120/70
[2020-09-04] MEDS: SODIUM CHLORIDE 0.9% 1,000 ML IV SCH ×2 (05:15→15:15)
[2020-09-04 08:25] VITALS: BP 110/76
[2020-09-04] MEDS: NYSTATIN 30 GM CREAM TP SCH ×3 (09:00→15:28)
[2020-09-04] MEDS: DOCUSATE SODIUM 100 MG CAPSULE PO SCH ×2 (09:00→09:10)
[2020-09-04] MEDS: ETHAMBUTOL HCL 400 MG TABLET PO SCH (09:09)
[2020-09-04] MEDS: PANTOPRAZOLE SODIUM 40 MG DR TABLET PO SCH (09:10)
[2020-09-04] MEDS: SODIUM CHLORIDE 1 GM TABLET PO SCH ×2 (09:10→16:00)
[2020-09-04] MEDS: CINACALCET HCL 30 MG TABLET PO SCH (09:10)
[2020-09-04] MEDS: HEPARIN SODIUM,PORCINE 5,000 UNITS/ML VIAL SQ SCH ×2 (09:10→16:00)
[2020-09-04] MEDS: RIFAMPIN 300 MG CAPSULE PO SCH (09:10)
[2020-09-04] MEDS: PYRAZINAMIDE 500 MG TABLET PO SCH (09:10)
[2020-09-04] MEDS: ISONIAZID 300 MG TABLET PO SCH (09:11)
[2020-09-04] MEDS: PYRIDOXINE HCL 50 MG TABLET PO SCH (09:11)
[2020-09-04] MEDS ORDERED: CINA30 PO (14:26)
[2020-09-04] MEDS ORDERED: DOCU-275 PO (14:27)
[2020-09-04] MEDS ORDERED: [UNRECOGNIZED DRUG - CODE] SQ (14:28)
[2020-09-04] MEDS ORDERED: ETHA400 PO (14:30)
[2020-09-04] MEDS ORDERED: HEPA500018 SQ (14:30)
[2020-09-04] MEDS ORDERED: ISON300 PO (14:31)
[2020-09-04] MEDS ORDERED: NYST30CR9 TP (14:31)
[2020-09-04] MEDS ORDERED: PANT-31 PO (14:46)
[2020-09-04] MEDS ORDERED: PYRA500 PO (14:47)
[2020-09-04] MEDS ORDERED: PYRI25TA4 PO (14:50)
[2020-09-04] MEDS ORDERED: RIFA300 PO (14:53)
[2020-09-04] MEDS ORDERED: NACL1 PO (14:54)
[2020-09-04] MEDS ORDERED: ACET-2247 PO (14:54)
[2020-09-04] MEDS ORDERED: BISA10SU11 PR (14:55)
[2020-09-04] MEDS ORDERED: DIPH25 PO (14:56)
[2020-09-04] MEDS ORDERED: HYDR-4061 PO (14:57)
[2020-09-04] MEDS ORDERED: MOM30 PO (14:57)
[2020-09-04] MEDS ORDERED: MORP60TA49 IVP (14:59)
[2020-09-04] MEDS ORDERED: morphine sulfate IVP (15:03)
[2020-09-04] MEDS ORDERED: ONDA220I IVP (15:04)
[2020-09-04] MEDS ORDERED: ZOLP-280 PO (15:05)
== END 2020-09-04 16:45 | DRG 974 ==
LOC: EMS 00:39 → 6S 01:37
PROVIDERS: ADMIT Internal Medicine; ATTEND Internal Medicine
PROC: 009U3ZX Drainage of Spinal Canal, Percutaneous Approach, Diagnostic (ICD-10-PCS; principal; 2020-08-13)
PROC: B01B1ZZ Fluoroscopy of Spinal Cord using Low Osmolar Contrast (ICD-10-PCS; 2020-08-13)
DX: A41.9 Sepsis, unspecified organism (principal); E43 Unspecified severe protein-calorie malnutrition; B20 Human immunodeficiency virus [HIV] disease; A19.9 Miliary tuberculosis, unspecified; A15.0 Tuberculosis of lung; E87.1 Hypo-osmolality and hyponatremia; N17.9 Acute kidney failure, unspecified; E87.2 Acidosis; N05.2 Unspecified nephritic syndrome with diffuse membranous glomerulonephritis; N25.81 Secondary hyperparathyroidism of renal origin; Z68.1 Body mass index [BMI] 19.9 or less, adult; B18.2 Chronic viral hepatitis C; E86.0 Dehydration; E87.6 Hypokalemia; K52.9 Noninfective gastroenteritis and colitis, unspecified; F17.210 Nicotine dependence, cigarettes, uncomplicated; N18.9 Chronic kidney disease, unspecified; N26.9 Renal sclerosis, unspecified; Z53.20 Procedure and treatment not carried out because of patient's decision for unspecified reasons; E11.22 Type 2 diabetes mellitus with diabetic chronic kidney disease; E83.52 Hypercalcemia; E88.09 Other disorders of plasma-protein metabolism, not elsewhere classified; Z20.822 Contact with and (suspected) exposure to COVID-19; I80.8 Phlebitis and thrombophlebitis of other sites; F32.9 Major depressive disorder, single episode, unspecified; L29.9 Pruritus, unspecified; Z79.899 Other long term (current) drug therapy; Z91.19 Patient's noncompliance with other medical treatment and regimen; Z91.14 Patient's other noncompliance with medication regimen; Z91.11 Patient's noncompliance with dietary regimen
CPT/HCPCS: 62270; 70450; 71045; 71250; 72192; 73200; 74150; 76770; 80048; 80053; 80074; 80076; 81001; 81002; 82306; 82533; 82550; 82570; 82607; 82652; 82728; 82784; 82945; 83540; 83550; 83605; 83615; 83690; 83735; 83935; 83970; 84100; 84145; 84155; 84156; 84157; 84165; 84166; 84295; 84300; 84439; 84443; 84540; 85014; 85018; 85025; 85610; 85730; 86334; 86335; 86360; 86403; 86480; 86592; 86593; 86635; 86644; 86645; 86701; 86702; 86738; 86780; 87015; 87040; 87070; 87081; 87101; 87149; 87188; 87205; 87206; 87305; 87385; 87449; 87529; 87556; 87798; 87804; 87899; 88108; 89051; 93005; 93971; 94640; 99291; J0561; J0636; J0696; J0885; J1644; J2001; J2270; J2543; J2916; J3475; J3480; J3490; J7030; J7040; J7050; J7060; 36415-L1; 36415-TC; U0003